=== PATIENT | female | born 1940 | race Caucasian/White ===

== ENCOUNTER → 2018-04-20 | Outpatient (CLI) | payer OTHER ==
[~2018-04-20] MED LIST: ASPI81TA40 PO; FLUO20CA30 PO; FURO20TA4 PO; LISI10TA7 PO; VIT1CAPS47 PO
== END | disposition home or self-care (01) ==
LOC: SHCH 10:17
PROVIDERS: ATTEND Internal Medicine Cardiovascular Disease
DX: I15.0 Renovascular hypertension (principal)
CPT/HCPCS: 93975

== ENCOUNTER 2018-08-14 18:01 | Inpatient (IN) | payer OTHER ==
[~2018-08-14] VITALS: Ht 160 cm; Wt 54.4 kg
[~2018-08-14 18:01] MED LIST changes: +AMOX1TAB15 PO; +ATOR20TA65 PO; +Cetirizine Hcl 5 Mg Tablet PO; -LISI10TA7 PO; +LISI2.5T2 PO; +MAGOX PO; +METO50 PO; +PRED20B PO
[2018-08-14 18:12] LABS: BASOPHILS % (AUTO) 0.9 % (0.0-5.0); EOSINOPHILS % (AUTO) 2.7 % (0.0-8.0); HEMATOCRIT 37.1 % (36-48); MEAN CORPUSCULAR HEMOGLOBIN 31.1 pg (27.0-33.0); MEAN CORPUSCULAR HGB CONC 32.9 g/dL (32.0-36.0); MEAN CORPUSCULAR VOLUME 94.6 fL (79-99); NEUTROPHILS % (AUTO) 61.4 % (40.0-77.0); NUCLEATED RED BLOOD CELLS 0.1 % (0.0-0.19); PLATELET COUNT (AUTO) 185 K/uL (130-400); RED BLOOD CELL COUNT(AUTO) 3.92 MIL/uL (4.00-5.50); RED CELL DISTRIBUTION WIDTH 16.2 % (11.0-15.5); WHITE BLOOD COUNT (AUTO) 7.7 K/uL (4.8-10.8)
[2018-08-14 18:24] LABS: CREATININE 1.8 mg/dL (0.5-1.5)
[2018-08-14 18:30] LABS: BILIRUBIN,TOTAL 0.5 mg/dL (0.2-1.0)
[2018-08-14 19:04] LABS: INR 0.95 (0.85-1.15); PARTIAL THROMBOPLASTIN TIME 27.6 SEC (26.3-35.5)
[2018-08-14] MEDS ORDERED: MORPHINE SULFATE 2 MG/ML 1ML SYG IV PRN (19:30)
[2018-08-14 20:09] LABS: HEMOGLOBIN A1C 5.8 % (4.0-6.0)
[2018-08-14 20:10] LABS: CHOLESTEROL 207 mg/dL (<200); HDL CHOLESTEROL 90 mg/dL (35-85); LDL DIRECT 109 mg/dL (0-99); TRIGLYCERIDES 65 mg/dL (30-200)
[2018-08-14 21:00] LABS: APPEARANCE,URINE Clear (CLEAR); BILIRUBIN,URINE Negative (NEGATIVE); COLOR,URINE Yellow (YELLOW); GLUCOSE, URINE (UA) Negative (NEGATIVE); KETONES,URINE Negative (NEGATIVE); LEUKOCYTE ESTERASE ,URINE Trace (NEGATIVE); NITRATE,URINE Negative (NEGATIVE); OCCULT BLOOD,URINE Negative (NEGATIVE); PROTEIN,URINE Negative (NEGATIVE); UROBILINOGEN,URINE 0.2 mg/dL (0.2-1.0)
[2018-08-14 21:39] LABS: BACTERIA,URINE None Seen /HPF (None Seen); RBC,URINE None Seen /HPF (0-1); SQUAMOUS EPITHELIAL CELL,UR 0-2 /HPF (0-2); WBC,URINE 0-1 /HPF (0-1)
[2018-08-14] MEDS ORDERED: HYDRALAZINE HCL 20 MG/ML VIAL IV PRN (21:45)
[2018-08-14] MEDS ORDERED: HYDRALAZINE HCL 20 MG/ML VIAL ONE (22:34)
[2018-08-14] MEDS ORDERED: IPRATROPIUM/ALBUTEROL SULFATE 3 ML SOLUTION IH ONE (23:07)
[2018-08-14] MEDS: IPRATROPIUM/ALBUTEROL SULFATE 3 ML SOLUTION IH SCH (23:13)
[2018-08-15] MEDS ORDERED: TEMAZEPAM 15 MG CAPSULE PO ONE (02:00)
[2018-08-15] MEDS ORDERED: TEMAZEPAM 30 MG CAP ONE (02:04)
[2018-08-15] MEDS ORDERED: HYDRALAZINE HCL 20 MG/ML VIAL ONE (02:55)
[2018-08-15] MEDS: IPRATROPIUM/ALBUTEROL SULFATE 3 ML SOLUTION IH SCH ×4 (07:14→23:12)
[2018-08-15] MEDS ORDERED: ENOXAPARIN SODIUM 30 MG/0.3 ML SQ SCH (09:00)
[2018-08-15] MEDS ORDERED: ATORVASTATIN CALCIUM 40 MG TABLET PO SCH (09:00)
[2018-08-15] MEDS ORDERED: ASPIRIN 325 MG TABLET PO SCH (09:00)
[2018-08-15] MEDS: PANTOPRAZOLE SODIUM 40 MG TABLET.DR PO SCH (09:00)
[2018-08-15] MEDS ORDERED: IPRATROPIUM/ALBUTEROL SULFATE 3 ML SOLUTION IH ONE (10:25)
--- NOTE | 2018-08-15 10:40 | NUR ---
COGNITIVE-LINGUISTIC EVAL COMPLETED. PT WITH MILD MOTOR SPEECH DEFICITS. PATIENT INFORMATION: Pt IS A 77 YEAR OLD FEMALE REFERRED FOR A COGNITIVE-LINGUISTIC EVAL SECONDARY TO POSSIBLE CVA VS. TIA. Pt COOPERATIVE DURING THE EVALUATION WITH FRIEND AT BEDSIDE. Pt HAS A PAST MEDICAL HISTORY SIGNIFICANT FOR HYPERTENSION, HYPERLIPIDEMIA, AORTIC ANEURYSM WITH STENT PLACEMENT 2016, PACEMAKER PLACEMENT 07/2018. 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 ORAL MOTOR OBSERVATIONS: PT WITH LINGUAL DEVIATION TO RIGHT WITH RIGHT SIDED FACIAL WEAKNESS, ASYMMETRICAL SMILE WITH WEAKNESS ON RIGHT SIDE. Pt IS ABLE TO PROVIDE LINGUAL LATERALIZATION. EVALUATION: Pt ABLE TO FOLLOW SIMPLE AND COMPLEX COMMANDS. Pt IS ABLE TO REQUEST WANTS AND NEEDS. Pt CAN LABEL COMMON OBJECTS AND IDENTIFY COMMON OBJECTS. PT COMMUNICATING IN SENTENCES AT THIS TIME WITH 70% INTELLIGIBILITY. Pt WITH DECREASED ORAL MOTOR MOVEMENT AND DECREASED MOTOR SPEECH. SKILLED SPEECH THERAPY IS RECOMMENDED TARGETING MOTOR SPEECH. RECOMMENDATIONS: 1. SKILLED SPEECH THERAPY 3-5XWK TARGETING SPEECH GOALS. LTG1: Pt WILL INCREASE LANGUAGE INTELLIGIBILITY TO ABLE TO REQUEST WANTS AND NEEDS DURING ADLs. *STG#1: Pt WILL COMPLETE AMRs/SMRs WITH 80% ACCURACY. *STG#2: Pt WILL USE COMPENSATORY STRATEGIES OF SLOW RATE OF SPEECH AND OVERARTICULATION AT THE PHRASE LEVEL WITH 80% ACCURACY. *STG#3: Pt WILL INCREASE INTELLIGIBILITY TO 90% ACCURACY AT CONVERSATIONAL LEVEL. *STG#4: Pt WILL COMPLETE ORAL MOTOR EXERCISES WITH 90% ACCURACY. G-CODES MOTOR SPEECH: [id number] Addendum: 08/15/18 at 1222 by ROSALVA CLINE Amended: Links added.
[2018-08-15] MEDS ORDERED: APIXABAN 2.5 MG TABLET PO ONE (11:47)
[2018-08-15] MEDS ORDERED: METOPROLOL TARTRATE 25 MG TAB ONE (11:48)
[2018-08-15] MEDS ORDERED: ENOXAPARIN SODIUM 30 MG/0.3 ML SQ ONE ×2 (11:48→12:14)
[2018-08-15] MEDS ORDERED: LISINOPRIL 5 MG TABLET ONE (11:48)
[2018-08-15] MEDS ORDERED: ASPIRIN 81MG TAB.CHEW ONE (11:49)
--- NOTE | 2018-08-15 11:56 | NUR ---
DYSPHAGIA EVAL COMPLETED. +S/S OF ASPIRATION WITH MIXED TEXTURE. RECOMMEND REGULAR, THIN LIQUIDS; PILLS WHOLE WITH LIQUIDS. NO MIXED TEXTURE AND NO STRAWS. PATIENT INFORMATION: Pt IS A 77 YEAR OLD MALE REFERRED FOR A BEDSIDE DYSPHAGIA EVAL COMPLETED SECONDARY TO ADMITTING DIAGNOSIS OF POSSIBLE CVA VS TIA. Pt COOPERATIVE DURING THE SESSION. Pt HAS A PAST MEDICAL HISTORY SIGNIFICANT FOR HYPERTENSION, HYPERLIPIDEMIA, AORTIC ANEURYSM WITH STENT PLACEMENT 2017, PACEMAKER PLACEMENT 07/2018. Pt WITH DENTURES IN PLACE AT THE TIME OF THE EVALUATION. EVALUATION: Pt PRESENTS WITH MILD OROPHARYNGEAL DYSPHAGIA CAUSED BY DECREASED LINGUAL LATERALIZATION, MILDLY DELAYED PHARYNGEAL RESPONSE TRIGGER, E/B RESIDUE IN TONGUE BODY (MILD), WITH +S/S OF ASPIRATION OF COUGH RESPONSE WITH MIXED TEXTURE. RECOMMENDATIONS: 1. REGULAR SOLIDS, THIN LIQUIDS; PILLS WHOLE WITH LIQUIDS. 2. COMPENSATORY STRATEGIES: *SEATED AT 90 DEGREES *NO STRAW *SMALL BITES AND SIPS *NO MIXED TEXTURE 3. DYSPHAGIA THERAPY 3-5X WEEK TO INCREASE ORAL MOTOR STRENGTH AND PHARYNGEAL SWALLOW: LTG#1: Pt WILL TOLERATE LEAST RESTRICTIVE DIET TO MEET NUTRITION/HYDRATION WITH NO S/S OF ASPIRATION. LTG#2: SKILLED EDUCATION Pt/FAMILY/STAFF STG#1: Pt WILL PARTICIPATE IN LARYNGEAL ELEVATION/EXCURSION EXERCISES WITH 80% ACCURACY. STG#2: Pt WILL PARTICIPATE IN TONGUE BASE RETRACTION EXERCISES WITH 80% ACCURACY. STG#3: Pt WILL PARTICIPATE IN ORAL MOTOR EXERCISES WITH 80% ACCURACY. STG#4: Pt WILL DEMONSTRATE TOLERANCE FOR REGULAR, THIN LIQUID DIET WITH NO S/S OF ASPIRATION FOR ALL MEALS AND SNACKS. STG#5: Pt WILL PARTICIPATE IN THERAPEUTIC TRIALS OF ADVANCED TEXTURES OF MIXED TEXTURE WITH NO S/S OF ASPIRATION. STG#6: SKILLED EDUCATION Pt/FAMILY/STAFF. G-CODES SWALLOWING: [id number] Addendum: 08/15/18 at 1206 by STERLING ESTEVES [facility] Amended: Links added.
[2018-08-15] MEDS ORDERED: PROP225T3 PO (12:58)
[2018-08-15] MEDS ORDERED: METO-408 PO (12:58)
[2018-08-15] MEDS ORDERED: PRAV20TA4 PO (12:58)
[2018-08-15] MEDS ORDERED: APIX2.5T PO (12:58)
[2018-08-15] MEDS ORDERED: LISI10TA7 PO (12:58)
--- NOTE | 2018-08-15 12:59 | NUR ---
ADVISED PT AND FRIEND DONOVAN TO BRING HOME MEDICAT Addendum: 08/15/18 at 1259 by CAT MCGRAW RN RN MEDICATIONS
[2018-08-15] MEDS ORDERED: PANTOPRAZOLE SODIUM 40 MG TABLET.DR PO ONE (13:48)
[2018-08-15 14:15] VITALS: BP 125/72
--- NOTE | 2018-08-15 14:30 | NUR ---
REPORT RECEIVED FROM MICHAEL RUSSELL (ED). PATIENT ADMITTED UNDER DR. FLORES FOR SLURRED SPEECH, DIFFICULTY WALKING, COUGH AND CONGESTION. DR. JAIMES CONSULTED BUT HAS NOT SEEN PATIENT. SOC DONE AT BEDSIDE. SPEECH PERFORMED BSS NO RESTRICTIONS. PATIENT RECEIVED ALL AM MEDS. PATIENT STABLE AT THIS TIME.
--- NOTE | 2018-08-15 15:54 | NUR ---
CALLED DR. JAIMES TO CLARIFY CONSULT SINCE 08/14/18. PER DR. JAIMES, WAS NOT NOTIFIED OF ER CONSULT AND PATIENT NEEDS TO BE TRANSFERRED TO ANOTHER HOSPITAL OR SOC NEEDS TO BE DONE. STATED, "I AM OUT OF TOWN UNTIL WEDNESDAY".
--- NOTE | 2018-08-15 19:48 | NUR ---
cm note met with patient and states is independent with ambulation,and adls. no dme. lives with friend jerry. pt has a driver starting gate that takes her to [facility] etc. dc plan is back to home at [place]. no dc needs. Addendum: 08/15/18 at 1950 by NISA AMATO CM Amended: Links added.
[2018-08-15 20:00] VITALS: BP 136/73
[2018-08-15] MEDS: METOPROLOL TARTRATE 25 MG TAB PO SCH (21:18)
[2018-08-15] MEDS: APIXABAN 2.5 MG TABLET PO SCH (21:18)
[2018-08-15] MEDS: ATORVASTATIN CALCIUM 20 MG TABLET PO SCH (21:18)
[2018-08-16] VITALS: BP 116/69
[2018-08-16 04:00] VITALS: BP 126/45
[2018-08-16 05:18] LABS: HEMATOCRIT 34.7 % (36-48); MEAN CORPUSCULAR HEMOGLOBIN 31.3 pg (27.0-33.0); MEAN CORPUSCULAR HGB CONC 33.1 g/dL (32.0-36.0); MEAN CORPUSCULAR VOLUME 94.5 fL (79-99); PLATELET COUNT (AUTO) 171 K/uL (130-400); RED BLOOD CELL COUNT(AUTO) 3.67 MIL/uL (4.00-5.50); RED CELL DISTRIBUTION WIDTH 16.3 % (11.0-15.5); WHITE BLOOD COUNT (AUTO) 7.5 K/uL (4.8-10.8)
[2018-08-16 05:23] LABS: CREATININE 1.7 mg/dL (0.5-1.5); POTASSIUM 4.1 mmol/L (3.5-5.1)
[2018-08-16] MEDS: IPRATROPIUM/ALBUTEROL SULFATE 3 ML SOLUTION IH SCH ×4 (06:49→23:01)
[2018-08-16 08:00] VITALS: BP 101/64
[2018-08-16] MEDS ORDERED: ASPIRIN 81MG TAB.CHEW ONE (08:51)
[2018-08-16] MEDS ORDERED: LISINOPRIL 2.5 MG TABLET PO SCH (09:00)
[2018-08-16] MEDS: ASPIRIN 325 MG TABLET PO SCH (09:00)
[2018-08-16] MEDS: PANTOPRAZOLE SODIUM 40 MG TABLET.DR PO SCH (09:11)
[2018-08-16] MEDS: LISINOPRIL 10 MG TABLET PO SCH (09:12)
[2018-08-16] MEDS: METOPROLOL TARTRATE 25 MG TAB PO SCH ×2 (09:12→20:43)
[2018-08-16] MEDS: FLUOXETINE HCL 20 MG CAPSULE PO SCH (09:12)
[2018-08-16] MEDS: APIXABAN 2.5 MG TABLET PO SCH ×2 (09:12→20:43)
--- NOTE | 2018-08-16 10:30 | NUR ---
SPEECH THERAPY COMPLETED. S: Pt SEEN IN ROOM. Pt COOPERATIVE DURING THE SESSION AND REPORTS THAT SHE HAS BEEN COMPLETING EXERCISES PROVED BY AIRCRAFT SALES REPRESENTATIVE. O: Pt CURRENTLY TARGETING THE FOLLOWING DYSPHAGIA GOALS. *STG#1: Pt WILL COMPLETE AMRs/SMRs WITH 80% ACCURACY: 70% ACCURACY GIVEN MAX CUES *STG#2: Pt WILL USE COMPENSATORY STRATEGIES OF SLOW RATE OF SPEECH AND OVERARTICULATION AT THE PHRASE LEVEL WITH 80% ACCURACY: 60% ACCURACY GIVEN MODERATE CUES *STG#3: Pt WILL INCREASE INTELLIGIBILITY TO 90% ACCURACY AT CONVERSATIONAL LEVEL: INTELLIGIBLE AT 80% ACCURACY *STG#4: Pt WILL COMPLETE ORAL MOTOR EXERCISES WITH 90% ACCURACY: 80% ACCURACY A: Pt PARTICIPATED IN ALL EXERCISES. Pt WITH RIGHT SIDED FACIAL WEAKNESS. Pt HIGHLY MOTIVATED TO IMPROVE FACIAL WEAKNESS AND INTELLIGIBILITY. P: RECOMMEND CONTINUED SKILLED SPEECH THERAPY TARGETING PREVIOUSLY DISCUSSED GOALS. AIRCRAFT SALES REPRESENTATIVE PROVIDED Pt WITH HOMEWORK TO BE COMPLETED DAILY BY Pt. SHE VERBALIZED AGREEMENT AND COMPLIANCE WITH RECOMMENDATIONS. Addendum: 08/16/18 at 1226 by STERLING ESTEVES [facility] Amended: Links added.
[2018-08-16 12:00] VITALS: BP 116/39
--- NOTE | 2018-08-16 12:00 | NUR ---
DISCHARGE PLANS MET WITH PATIENT AT BEDSIDE. RIGHT SIDE OF FACE SLIGHTLY DROOPY, SPEECH A LITTLE DIFFICULT TO UNDERSTAND, WORKING REVIEWED FACE SHEET. NO NEXT OF KIN. PT STATES LIVES ALONE, FRIEND/NEIGHBOR IS 'AT HER HOUSE ALL THE TIME' STATES LEGALLY BLIND,HAS A FRIEND WHO DRIVES HER. ASKED ABOUT NEXT OF KIN, ADDING TO FACESHEET, PT VISIBLY UPSET, STATES WHY DO YOU WANT TO KNOW ABOUT MY MONEY? TRIED TO EXPLAIN THE VALUE OF AN MPOA. DECLINED TO HAVE SISTER BIANCA CONNELLY (LIVES [place]CROSS [address]) ,DAUGHTER VONDA ARANDA ([place]) OR SON CHASITY GIORDANO ([facility]) PHONE NUMBERS PUT ON THE FACE SHEET. HAS NO DME AT HOME, INCLUDING NO SHOWER CHAIR; USES O2 AT NIGHT. PT CURRENTLY ON O2 2 LITRES. ADVISED PT I HAD A ORDER TO TALK ABOUT PLACEMENT. PT DECLINED FIRMLY . DISCUSSED SETTING UP HOME HEALTH-STATED SHE GOES TO CLINIC IN [place]/DR. MCCURDY IS ON FACE SHEET,GOT APPT FOR Wednesday, SHE WILL FOLLOW UP THERE WHEN DISCHARGED FOR THERAPY. CASE MANAGEMENT WILL ENSURE PTS INFO GETS TO [facility] IN A TIMELY MANNER FOR POSS HH SET UP.
--- NOTE | 2018-08-16 15:00 | NUR ---
PT WANTS TO LEAVE TODAY CALLED BY PRIMARY RN, PT WANTS TO LEAVE TODAY . 2D ECHO STILL PENDING, PRELIM READING ABNORMAL. TWO GENTREFUGIOEN AT BEDSIDE, ONE JENNIFER, ON A FIREND WHO WILL DRIVE BOTH OF THEM HOME. PT VISIBLY UPSET TO SEE THIS CM. STATES I WANT TO TALK TO MY DOCTOR, I WANT TO LEAVE TODAY; EXPLAINED THAT THE 2D ECHO IS NOT READ. THAT THE ECHO SOMETIMES CHANGES THE AMPIUT OR TYUP OF ANTICOPAGULAITON A PERSON IS ONE. SMALL POSSIBILITY BUT TRUE. PT STILL STATEED WANTED TO LEAVE. TALKED TO PRIMARY NURSE JENNIFER, WHO CALLED [facility]. PT WOULD HAVE TO LEAVE AMA. PT STATED WOULD WAIT AT THIS TIME. APPOINT FOR TOMORROW 08/[address] SANCHEZ PATIENT MADE. WILL FAX ALL PERTINENT INFO FOR TIMELY FOLLOW UP
[2018-08-16] MEDS: ACETAMINOPHEN 325 MG TAB PO PRN ×2 (15:08→20:48)
[2018-08-16 16:00] VITALS: BP 130/73
--- NOTE | 2018-08-16 19:25 | NUR ---
Received bedside report ,pt. decided to stay ,pt. is awake and oriented,moving all extremeties.Echo pending result at this time.As per report pt. refused SNF placement ,she decided to go home with home health.
[2018-08-16 20:00] VITALS: BP 135/76
[2018-08-16] MEDS: ATORVASTATIN CALCIUM 20 MG TABLET PO SCH (20:43)
[2018-08-17] VITALS: BP 140/74
[2018-08-17 04:00] VITALS: BP 120/70
[2018-08-17 05:22] LABS: BASOPHILS % (AUTO) 0.8 % (0.0-5.0); HEMATOCRIT 32.8 % (36-48); MEAN CORPUSCULAR HEMOGLOBIN 31.6 pg (27.0-33.0); MEAN CORPUSCULAR HGB CONC 33.2 g/dL (32.0-36.0); MEAN CORPUSCULAR VOLUME 95.2 fL (79-99); MONOCYTES % (AUTO) 14.9 % (3.0-13.0); NEUTROPHILS % (AUTO) 62.3 % (40.0-77.0); PLATELET COUNT (AUTO) 192 K/uL (130-400); RED BLOOD CELL COUNT(AUTO) 3.45 MIL/uL (4.00-5.50); RED CELL DISTRIBUTION WIDTH 16.3 % (11.0-15.5)
[2018-08-17 05:31] LABS: CREATININE 1.8 mg/dL (0.5-1.5); POTASSIUM 4.4 mmol/L (3.5-5.1)
[2018-08-17] MEDS: IPRATROPIUM/ALBUTEROL SULFATE 3 ML SOLUTION IH SCH (05:53)
[2018-08-17 07:00] VITALS: BP 128/70
[2018-08-17] MEDS: METOPROLOL TARTRATE 25 MG TAB PO SCH (10:10)
[2018-08-17] MEDS: LISINOPRIL 10 MG TABLET PO SCH (10:10)
[2018-08-17] MEDS: FLUOXETINE HCL 20 MG CAPSULE PO SCH (10:10)
[2018-08-17] MEDS: APIXABAN 2.5 MG TABLET PO SCH (10:10)
[2018-08-17] MEDS: PANTOPRAZOLE SODIUM 40 MG TABLET.DR PO SCH (10:10)
[2018-08-17] MEDS: ASPIRIN 325 MG TABLET PO SCH (10:11)
[2018-08-17] MEDS ORDERED: METO25 PO (12:12)
--- NOTE | 2018-08-17 12:18 | NUR ---
SPEECH THERAPY COMPLETED. S: Pt SEEN IN ROOM. Pt COOPERATIVE DURING THE SESSION AND REPORTS THAT SHE HAS BEEN COMPLETING EXERCISES PROVIDED BY GEROPSYCHOLOGIST. O: Pt CURRENTLY TARGETING THE FOLLOWING DYSPHAGIA GOALS. *STG#1: Pt WILL COMPLETE AMRs/SMRs WITH 80% ACCURACY: 70% ACCURACY GIVEN MAX CUES *STG#2: Pt WILL USE COMPENSATORY STRATEGIES OF SLOW RATE OF SPEECH AND OVERARTICULATION AT THE PHRASE LEVEL WITH 80% ACCURACY: 60% ACCURACY GIVEN MODERATE CUES *STG#3: Pt WILL INCREASE INTELLIGIBILITY TO 90% ACCURACY AT CONVERSATIONAL LEVEL: INTELLIGIBLE AT 80% ACCURACY *STG#4: Pt WILL COMPLETE ORAL MOTOR EXERCISES WITH 90% ACCURACY: 80% ACCURACY A: Pt PARTICIPATED IN ALL EXERCISES. Pt WITH RIGHT SIDED FACIAL WEAKNESS. Pt HIGHLY MOTIVATED TO IMPROVE FACIAL WEAKNESS AND INTELLIGIBILITY. P: RECOMMEND CONTINUED SKILLED SPEECH THERAPY TARGETING PREVIOUSLY DISCUSSED GOALS. GEROPSYCHOLOGIST PROVIDED Pt WITH HOMEWORK TO BE COMPLETED DAILY BY Pt. SHE VERBALIZED AGREEMENT AND COMPLIANCE WITH RECOMMENDATIONS. Addendum: 08/17/18 at [address] [facility] Amended: Links added.
== END 2018-08-17 15:10 | disposition home or self-care (01) | DRG 69 ==
LOC: EDH 18:01 → EDHIP 19:30 → 3DH 08-15 14:50
PROVIDERS: ADMIT Hospitalist; ATTEND Hospitalist
DX: G45.9 Transient cerebral ischemic attack, unspecified (principal); E78.5 Hyperlipidemia, unspecified; I10 Essential (primary) hypertension; Z82.49 Family history of ischemic heart disease and other diseases of the circulatory system; Z86.79 Personal history of other diseases of the circulatory system; Z95.0 Presence of cardiac pacemaker; Z80.1 Family history of malignant neoplasm of trachea, bronchus and lung; Z87.891 Personal history of nicotine dependence
CPT/HCPCS: 36415; 70450; 71045; 80048; 80053; 80061; 81001; 82948; 83036; 84484; 85025; 85027; 85610; 85730; 92507; 92522; 92610; 93005; 93306; 93880; 94640; 94664; 97039; G0378; J0360; J1650

== ENCOUNTER → 2019-09-13 | Outpatient (CLI) | payer OTHER ==
[~2019-09-13] MED LIST changes: -AMOX1TAB15 PO; +APIX2.5T PO; -ASPI81TA40 PO; -ATOR20TA65 PO; -Cetirizine Hcl 5 Mg Tablet PO; -FLUO20CA30 PO; -FURO20TA4 PO; +LISI10TA7 PO; -LISI2.5T2 PO; -MAGOX PO; +METO25 PO; -METO50 PO; +PRAV20TA4 PO; -PRED20B PO; +PROP225T3 PO; -VIT1CAPS47 PO
== END | disposition home or self-care (01) ==
LOC: RAH 08:12
PROVIDERS: ATTEND Internal Medicine Critical Care Medicine
DX: N26.1 Atrophy of kidney (terminal) (principal)
CPT/HCPCS: 74176

== ENCOUNTER → 2019-11-13 | Outpatient (CLI) | payer OTHER | END | disposition home or self-care (01) | LOC: SHCH 10:44 | PROVIDERS: ATTEND Internal Medicine Cardiovascular Disease | DX: I71.4 Abdominal aortic aneurysm, without rupture (principal); I73.9 Peripheral vascular disease, unspecified | CPT/HCPCS: 93925; 93978 ==

== ENCOUNTER → 2022-09-01 | Outpatient (CLI) | payer OTHER ==
[~2022-09-01] MED LIST changes: +ACYC200C24 PO; +AMOX1TAB16 PO; +DILT180C63 PO; +FERR159T2 PO; +FLUO20CA36 PO; +FOLI0.8T22 PO; +LISI10TA24 PO; -LISI10TA7 PO; +MEMA10TA55 PO; -METO25 PO; +OMEG-148 PO; -PRAV20TA4 PO; +PRED20TA3 PO; -PROP225T3 PO; +ROSU10TA22 PO; +SODI650T PO
== END | disposition home or self-care (01) ==
LOC: SHCH 07:49
PROVIDERS: ATTEND Internal Medicine Cardiovascular Disease
DX: I70.1 Atherosclerosis of renal artery (principal); I71.40 Abdominal aortic aneurysm, without rupture, unspecified; I48.21 Permanent atrial fibrillation
CPT/HCPCS: 93975; 93978

== ENCOUNTER 2023-09-05 11:18 | Inpatient (IN) | payer OTHER ==
[~2023-09-05] VITALS: Ht 157.5 cm; Wt 73.4 kg
[2023-09-05 11:48] LABS: BASOPHILS # (AUTO) 0.05 K/uL (0.00-0.20); BASOPHILS % (AUTO) 0.5 % (0.0-5.0); EOSINOPHILS # (AUTO) 0.27 K/uL (0.00-0.70); EOSINOPHILS % (AUTO) 2.9 % (0.0-8.0); HEMATOCRIT 36.7 % (36-48); IMMATURE GRANULOCYTE ABSOLUTE 0.02 K/uL (0-1); LYMPHOCYTES # (AUTO) 1.4 K/uL (1.0-4.8); LYMPHOCYTES % (AUTO) 15.2 % (21.0-51.0); MEAN CORPUSCULAR HEMOGLOBIN 29.8 pg (27.0-33.0); MEAN CORPUSCULAR HGB CONC 30.5 g/dL (32.0-36.0); MEAN CORPUSCULAR VOLUME 97.6 fL (79-99); MONOCYTES # (AUTO) 1.3 K/uL (0.1-1.0); MONOCYTES % (AUTO) 13.9 % (3.0-13.0); NEUTROPHILS # (AUTO) 6.2 K/uL (1.8-7.7); NEUTROPHILS % (AUTO) 67.3 % (40.0-77.0); PLATELET COUNT (AUTO) 213 K/uL (130-400); RED BLOOD CELL COUNT(AUTO) 3.76 MIL/uL (4.00-5.50); RED CELL DISTRIBUTION WIDTH 14.3 % (11.0-15.5); WHITE BLOOD COUNT (AUTO) 9.2 K/uL (4.8-10.8)
[2023-09-05] MEDS: SOLU-MEDROL 125MG VIAL IVP ONE (11:50)
[2023-09-05 11:55] LABS: CREATININE 1.2 mg/dL (0.5-1.0); POTASSIUM 3.9 mmol/L (3.5-5.1)
[2023-09-05 11:57] LABS: SARS-CoV-2, RNA, NAAT NEGATIVE SARS CoV-2 (NEGATIVE)
[2023-09-05 12:00] LABS: INFLUENZA TYPE A Negative For Type A (NEGATIVE); INFLUENZA TYPE B Negative For Type B (NEGATIVE)
[2023-09-05 12:00] LABS: ALBUMIN 2.8 g/dL (3.5-5.0); BILIRUBIN,TOTAL 0.3 mg/dL (0.2-1.0); TOTAL PROTEIN, SERUM 6.8 g/dL (6.0-8.3)
[2023-09-05 12:01] VITALS: PULSE 113; RESP 24
[2023-09-05 12:02] LABS: ABG BASE EXCESS 2.6 mmol/L (-2.0-3.0); ABG HCO3 29.6 mmol/L (21.0-28.0); ABG OXYGEN SATURATION 80.3 % (95.0-99.0); ABG PCO2 55 mmHg (32-45); ABG PH 7.347 (7.35-7.450); PO2, ARTERIAL BG 47.3 mmHg (83.0-108.0); VENT MODE, BG NC (ROOM AIR)
[2023-09-05 12:09] VITALS: PULSE 116; RESP 24; O2SAT 98
[2023-09-05 12:11] LABS: B-TYPE NATRIURETIC PEPTIDE 924 pg/mL (0-100)
[2023-09-05 13:00] VITALS: PULSE 110; RESP 24; O2SAT 99
[2023-09-05] MEDS: IPRATROPIUM/ALBUTEROL SULFATE 3 ML SOLUTION IH ONE (13:10)
[2023-09-05] MEDS: FUROSEMIDE 40MG VIAL IV ONE (13:15)
[2023-09-05] MEDS: CEFTRIAXONE 2GM VIAL IVPB SCH (14:26)
[2023-09-05] MEDS: METOPROLOL TARTRATE 25 MG TAB PO SCH ×2 (14:26→20:50)
[2023-09-05 14:49] LABS: THYROID STIMULATING HORMONE 1.23 uIU/mL (0.36-3.74)
[2023-09-05] MEDS ORDERED: ACETAMINOPHEN 500 MG TABLET PO PRN (15:00)
[2023-09-05] MEDS ORDERED: POTASSIUM CHLORIDE 10% ELIXIR 20 MEQ/15 ML UDCUP PO PRN (15:00)
[2023-09-05] MEDS ORDERED: POTASSIUM CHLORIDE 20MEQ/100ML 100 ML IV PRN (15:00)
[2023-09-05] MEDS ORDERED: MAGNESIUM 2GM PREMIX 50ML 50 ML IV PRN (15:00)
[2023-09-05 15:12] LABS: INR 0.96 (0.85-1.15); PROTHROMBIN TIME 11.4 SEC (9.6-11.6)
[2023-09-05 15:14] LABS: PARTIAL THROMBOPLASTIN TIME 34.9 SEC (26.3-35.5)
[2023-09-05 16:13] LABS: CREATININE 1.3 mg/dL (0.5-1.0); MAGNESIUM 1.9 mg/dL (1.80-2.40); POTASSIUM 3.9 mmol/L (3.5-5.1)
[2023-09-05] MEDS: ZOSYN 3.375GM +NS 50ML IV SCH (16:43)
[2023-09-05] MEDS: ENOXAPARIN SODIUM 80 MG/0.8 ML SQ SCH (16:43)
[2023-09-05] MEDS: INSULIN HUMULIN R 100 UNIT/ML 3ML SQ SCH (17:18)
[2023-09-05] MEDS: FUROSEMIDE 40MG VIAL IV SCH (18:17)
[2023-09-05 18:55] VITALS: PULSE 109; RESP 23
[2023-09-05] MEDS: IPRATROPIUM 0.5 MG/2.5 ML INH IH SCH (18:58)
[2023-09-05] MEDS: BUDESONIDE 0.5 MG/2 ML INH IH SCH (18:58)
[2023-09-05 19:01] VITALS: PULSE 105; PULSE 108; RESP 22; RESP 23; O2SAT 95
[2023-09-05] MEDS ORDERED: SOLU-MEDROL 40MG VIAL IVP SCH (20:00)
[2023-09-05] MEDS: SOLU-MEDROL 40MG VIAL IVP SCH (20:49)
[2023-09-05] MEDS: DOXYCYCLINE HYCLATE 100 MG TABLET PO SCH (20:50)
[2023-09-05] MEDS: FAMOTIDINE 20MG VIAL IV SCH (20:50)
[2023-09-06] VITALS (12 sets, daily range): BP systolic 117–160; BP diastolic 74–93; PULSE 79–103; RESP 18–26; O2SAT 92–95
[2023-09-06] MEDS ORDERED: METO-408 PO (00:45)
[2023-09-06] MEDS ORDERED: ALPR0.255 PO (00:45)
[2023-09-06] MEDS ORDERED: MONT-39 PO (00:45)
[2023-09-06] MEDS ORDERED: DILT180C89 PO (00:45)
[2023-09-06] MEDS ORDERED: FERR325T29 PO (00:45)
[2023-09-06 01:51] LABS: APPEARANCE,URINE CLEAR (CLEAR); BILIRUBIN,URINE NEGATIVE (NEGATIVE); COLOR,URINE COLORLESS (YELLOW); GLUCOSE, URINE (UA) NEGATIVE (NEGATIVE); KETONES,URINE NEGATIVE (NEGATIVE); LEUKOCYTE ESTERASE ,URINE NEGATIVE Leu/uL (NEGATIVE); NITRATE,URINE NEGATIVE (NEGATIVE); OCCULT BLOOD,URINE NEGATIVE (NEGATIVE); PROTEIN,URINE NEGATIVE (NEGATIVE); UROBILINOGEN,URINE 0.2 mg/dL (0.2-1.0)
[2023-09-06 01:52] LABS: ADD UA MICROSCOPIC NO
[2023-09-06 07:14] LABS: BASOPHILS # (AUTO) 0.01 K/uL (0.00-0.20); BASOPHILS % (AUTO) 0.1 % (0.0-5.0); HEMATOCRIT 37.8 % (36-48); IMMATURE GRANULOCYTE ABSOLUTE 0.02 K/uL (0-1); LYMPHOCYTES # (AUTO) 0.8 K/uL (1.0-4.8); LYMPHOCYTES % (AUTO) 10.5 % (21.0-51.0); MEAN CORPUSCULAR HEMOGLOBIN 29.7 pg (27.0-33.0); MEAN CORPUSCULAR VOLUME 92.9 fL (79-99); MONOCYTES # (AUTO) 0.4 K/uL (0.1-1.0); MONOCYTES % (AUTO) 5.5 % (3.0-13.0); NEUTROPHILS # (AUTO) 6.7 K/uL (1.8-7.7); NEUTROPHILS % (AUTO) 83.7 % (40.0-77.0); PLATELET COUNT (AUTO) 259 K/uL (130-400); RED BLOOD CELL COUNT(AUTO) 4.07 MIL/uL (4.00-5.50)
[2023-09-06 07:29] LABS: ALBUMIN 3.1 g/dL (3.5-5.0); BILIRUBIN,TOTAL 0.2 mg/dL (0.2-1.0); CREATININE 1.5 mg/dL (0.5-1.0); MAGNESIUM 1.9 mg/dL (1.80-2.40); POTASSIUM 3.9 mmol/L (3.5-5.1); TOTAL PROTEIN, SERUM 7.6 g/dL (6.0-8.3)
[2023-09-06 07:30] LABS: ABG BASE EXCESS 4.3 mmol/L (-2.0-3.0); ABG HCO3 30.1 mmol/L (21.0-28.0); ABG OXYGEN SATURATION 88.3 % (95.0-99.0); ABG PCO2 49 mmHg (32-45); ABG PH 7.405 (7.35-7.450); PO2, ARTERIAL BG 54.8 mmHg (83.0-108.0); VENT MODE, BG VENTI (ROOM AIR)
[2023-09-06 08:21] LABS: B-TYPE NATRIURETIC PEPTIDE 1060 pg/mL (0-100)
[2023-09-06] MEDS: ENOXAPARIN SODIUM 80 MG/0.8 ML SQ SCH (09:18)
[2023-09-06] MEDS ORDERED: IBUP-2070 PO (11:16)
[2023-09-06] MEDS ORDERED: CHOL500045 PO (11:16)
[2023-09-06] MEDS ORDERED: CYAN10007 IJ (11:16)
[2023-09-06] MEDS ORDERED: ROSU5TAB12 PO (11:16)
[2023-09-06] MEDS ORDERED: FOLI1TAB85 PO (11:16)
[2023-09-06] MEDS ORDERED: MEMA10TA55 PO (11:16)
[2023-09-06] MEDS ORDERED: VIT1CAPS47 PO (11:16)
[2023-09-06] MEDS ORDERED: ACET325T51 PO (11:16)
[2023-09-06] MEDS ORDERED: APIX2.5T PO (11:16)
[2023-09-06] MEDS ORDERED: FLUO20CA36 PO (11:16)
[2023-09-06] MEDS: METOPROLOL TARTRATE 50 MG TAB PO SCH (20:37)
[2023-09-06 23:51] LABS: MAGNESIUM 1.8 mg/dL (1.80-2.40); PHOSPHORUS 4.3 mg/dL (2.5-4.9)
[2023-09-07] VITALS (15 sets, daily range): BP systolic 96–159; BP diastolic 51–99; PULSE 61–98; RESP 18–24; O2SAT 90–98
[2023-09-07 02:59] LABS: APPEARANCE,URINE CLEAR (CLEAR); BILIRUBIN,URINE NEGATIVE (NEGATIVE); COLOR,URINE COLORLESS (YELLOW); GLUCOSE, URINE (UA) NEGATIVE (NEGATIVE); KETONES,URINE NEGATIVE (NEGATIVE); LEUKOCYTE ESTERASE ,URINE 25 Leu/uL (NEGATIVE); NITRATE,URINE NEGATIVE (NEGATIVE); OCCULT BLOOD,URINE SMALL (NEGATIVE); PH,URINE 5.5 (5.0-8.0); PROTEIN,URINE 10 mg/dL (NEGATIVE); UROBILINOGEN,URINE 0.2 mg/dL (0.2-1.0)
[2023-09-07 03:02] LABS: ADD UA MICROSCOPIC YES; CHLORIDE,URINE RANDOM 132 mmol/L (110-250); CREATININE,URINE RANDOM 17.67 mg/dL (30-135); POTASSIUM,URINE RANDOM 19 mmol/L (25-125); PROTEIN,URINE RANDOM 33.3 mg/dL (0-11.9); SODIUM,URINE RANDOM 120 mmol/l (40-220)
[2023-09-07 03:03] LABS: BACTERIA,URINE FEW /HPF (None Seen); MUCUS,URINE RARE LPF (None Seen); SQUAMOUS EPITHELIAL CELL,UR RARE /HPF (0-2)
[2023-09-07 05:36] LABS: BASOPHILS # (AUTO) 0.02 K/uL (0.00-0.20); BASOPHILS % (AUTO) 0.1 % (0.0-5.0); HEMATOCRIT 40.8 % (36-48); IMMATURE GRANULOCYTE ABSOLUTE 0.09 K/uL (0-1); LYMPHOCYTES # (AUTO) 1.1 K/uL (1.0-4.8); LYMPHOCYTES % (AUTO) 6.9 % (21.0-51.0); MEAN CORPUSCULAR HEMOGLOBIN 29.8 pg (27.0-33.0); MEAN CORPUSCULAR HGB CONC 31.6 g/dL (32.0-36.0); MEAN CORPUSCULAR VOLUME 94.2 fL (79-99); MONOCYTES # (AUTO) 1.2 K/uL (0.1-1.0); MONOCYTES % (AUTO) 7.5 % (3.0-13.0); NEUTROPHILS # (AUTO) 13.6 K/uL (1.8-7.7); NEUTROPHILS % (AUTO) 84.9 % (40.0-77.0); PLATELET COUNT (AUTO) 302 K/uL (130-400); RED BLOOD CELL COUNT(AUTO) 4.33 MIL/uL (4.00-5.50); RED CELL DISTRIBUTION WIDTH 13.9 % (11.0-15.5)
[2023-09-07 05:57] LABS: ALBUMIN 3.3 g/dL (3.5-5.0); BILIRUBIN,TOTAL 0.4 mg/dL (0.2-1.0); CREATININE 1.7 mg/dL (0.5-1.0); POTASSIUM 3.5 mmol/L (3.5-5.1); TOTAL PROTEIN, SERUM 7.9 g/dL (6.0-8.3)
[2023-09-07 06:01] LABS: B-TYPE NATRIURETIC PEPTIDE 1210 pg/mL (0-100)
[2023-09-07] MEDS: KCL 20 MEQ ERTAB PO PRN (06:38)
[2023-09-07] MEDS: INSULIN HUMULIN R 100 UNIT/ML 3ML SQ SCH (08:05)
[2023-09-07] MEDS: FUROSEMIDE 40 MG TABLET PO SCH (09:22)
[2023-09-07] MEDS: ONDANSETRON 4MG INJ IVP PRN (15:34)
[2023-09-08 03:33] VITALS: BP 147/86; PULSE 80; RESP 18
[2023-09-08 04:00] LABS: BASOPHILS # (AUTO) 0.01 K/uL (0.00-0.20); BASOPHILS % (AUTO) 0.1 % (0.0-5.0); EOSINOPHILS # (AUTO) 0.11 K/uL (0.00-0.70); HEMATOCRIT 40.2 % (36-48); IMMATURE GRANULOCYTE ABSOLUTE 0.04 K/uL (0-1); LYMPHOCYTES # (AUTO) 1.6 K/uL (1.0-4.8); LYMPHOCYTES % (AUTO) 14.1 % (21.0-51.0); MEAN CORPUSCULAR HEMOGLOBIN 29.9 pg (27.0-33.0); MEAN CORPUSCULAR HGB CONC 31.6 g/dL (32.0-36.0); MEAN CORPUSCULAR VOLUME 94.6 fL (79-99); MONOCYTES # (AUTO) 1.6 K/uL (0.1-1.0); MONOCYTES % (AUTO) 14.2 % (3.0-13.0); NEUTROPHILS # (AUTO) 7.8 K/uL (1.8-7.7); NEUTROPHILS % (AUTO) 70.2 % (40.0-77.0); PLATELET COUNT (AUTO) 283 K/uL (130-400); RED BLOOD CELL COUNT(AUTO) 4.25 MIL/uL (4.00-5.50); RED CELL DISTRIBUTION WIDTH 14.3 % (11.0-15.5); WHITE BLOOD COUNT (AUTO) 11.1 K/uL (4.8-10.8)
[2023-09-08 04:21] LABS: ALBUMIN 2.9 g/dL (3.5-5.0); BILIRUBIN,TOTAL 0.5 mg/dL (0.2-1.0); PHOSPHORUS 6.1 mg/dL (2.5-4.9); POTASSIUM 3.7 mmol/L (3.5-5.1); TOTAL PROTEIN, SERUM 7.2 g/dL (6.0-8.3); URIC ACID 6.3 mg/dL (2.6-7.2)
[2023-09-08 06:16] VITALS: PULSE 88; RESP 20; O2SAT 93
[2023-09-08 06:17] VITALS: PULSE 88; RESP 20
[2023-09-08 08:08] VITALS: BP 130/91; PULSE 85; RESP 18
[2023-09-08] MEDS: SOLU-MEDROL 40MG VIAL IVP SCH (09:15)
[2023-09-08 09:20] VITALS: O2SAT 93
[2023-09-08] MEDS ORDERED: PRED20TA3 PO (10:14)
[2023-09-08] MEDS ORDERED: AMOX1TAB15 PO (10:14)
[2023-09-08] MEDS ORDERED: DOXY100T2 PO (10:14)
[2023-09-08 11:15] VITALS: BP 157/74; PULSE 94; RESP 18
== END 2023-09-08 11:59 | disposition home or self-care (01) | DRG 177 ==
LOC: EDH 11:18 → EDHIP 14:09 → 2DH 09-06 13:44
PROVIDERS: ADMIT Hospitalist; ATTEND Hospitalist
DX: J15.69 Pneumonia due to other Gram-negative bacteria (principal); E43 Unspecified severe protein-calorie malnutrition; I50.43 Acute on chronic combined systolic (congestive) and diastolic (congestive) heart failure; J96.21 Acute and chronic respiratory failure with hypoxia; J96.22 Acute and chronic respiratory failure with hypercapnia; J44.1 Chronic obstructive pulmonary disease with (acute) exacerbation; E87.29 Other acidosis; J44.0 Chronic obstructive pulmonary disease with (acute) lower respiratory infection; D68.69 Other thrombophilia; I13.0 Hypertensive heart and chronic kidney disease with heart failure and stage 1 through stage 4 chronic kidney disease, or unspecified chronic kidney disease; I48.19 Other persistent atrial fibrillation; N17.9 Acute kidney failure, unspecified; N28.0 Ischemia and infarction of kidney; Z20.822 Contact with and (suspected) exposure to COVID-19; N18.30 Chronic kidney disease, stage 3 unspecified; J84.10 Pulmonary fibrosis, unspecified; E66.3 Overweight; E78.5 Hyperlipidemia, unspecified; F03.90 Unspecified dementia, unspecified severity, without behavioral disturbance, psychotic disturbance, mood disturbance, and anxiety; F17.210 Nicotine dependence, cigarettes, uncomplicated; I16.0 Hypertensive urgency; I27.20 Pulmonary hypertension, unspecified; I45.9 Conduction disorder, unspecified; I71.43 Infrarenal abdominal aortic aneurysm, without rupture; I73.9 Peripheral vascular disease, unspecified; J43.9 Emphysema, unspecified; N28.1 Cyst of kidney, acquired; T38.0X5A Adverse effect of glucocorticoids and synthetic analogues, initial encounter; Y92.89 Other specified places as the place of occurrence of the external cause; Z79.01 Long term (current) use of anticoagulants; Z79.899 Other long term (current) drug therapy; Z86.73 Personal history of transient ischemic attack (TIA), and cerebral infarction without residual deficits; Z86.79 Personal history of other diseases of the circulatory system; Z95.0 Presence of cardiac pacemaker; Z99.81 Dependence on supplemental oxygen; Z68.29 Body mass index [BMI] 29.0-29.9, adult
CPT/HCPCS: 36415; 36600; 71045; 71250; 76770; 78582; 80048; 80053; 81001; 81003; 82436; 82570; 82803; 82948; 83036; 83735; 83880; 84100; 84133; 84145; 84156; 84300; 84443; 84484; 84550; 85025; 85378; 85610; 85730; 86140; 87071; 87205; 87635; 87804; 93005; 93306; 94640; 94664; 96365; 96375; A9540; A9558; G0378; J0696; J1650; J1815; J1940; J2405; J2543; J2920; J2930; J3490

== ENCOUNTER → 2023-10-05 | Outpatient (CLI) | payer OTHER ==
[~2023-10-05] MED LIST changes: +ACET325T51 PO; -ACYC200C24 PO; +ALPR0.255 PO; +AMOX1TAB15 PO; -AMOX1TAB16 PO; +CHOL500045 PO; +CYAN10007 IJ; -DILT180C63 PO; +DILT180C89 PO; +DOXY100T2 PO; -FERR159T2 PO; +FERR325T29 PO; -FOLI0.8T22 PO; +FOLI1TAB85 PO; +IBUP-2070 PO; -LISI10TA24 PO; +MEMA10TA21 PO; -MEMA10TA55 PO; +METO-408 PO; +MONT-39 PO; -OMEG-148 PO; -ROSU10TA22 PO; +ROSU5TAB12 PO; -SODI650T PO; +VIT1CAPS47 PO
[2023-10-05] MEDS: REGADENOSON 0.4 MG/5 ML PF SYG IVP ONE (13:18)
== END | disposition home or self-care (01) ==
LOC: SHCH 08:39
PROVIDERS: ATTEND Internal Medicine Cardiovascular Disease
DX: I48.91 Unspecified atrial fibrillation (principal); I25.10 Atherosclerotic heart disease of native coronary artery without angina pectoris
CPT/HCPCS: 78452; 96374; 93017; J2785; A9500 ×2

== ENCOUNTER 2023-11-26 10:08 | Inpatient (IN) | payer OTHER ==
[~2023-11-26] VITALS: Ht 160 cm; Wt 68.9 kg
[2023-11-26] VITALS (7 sets, daily range): BP systolic 100–120; BP diastolic 63–83; PULSE 70–93; RESP 16–20; O2SAT 93–99
[~2023-11-26 10:08] MED LIST changes: +FLUO-418 PO; -FLUO20CA36 PO; -ROSU5TAB12 PO; +ROSU5TAB43 PO
[2023-11-26 10:38] LABS: BASOPHILS # (AUTO) 0.04 K/uL (0.00-0.20); BASOPHILS % (AUTO) 0.4 % (0.0-5.0); EOSINOPHILS # (AUTO) 0.07 K/uL (0.00-0.70); EOSINOPHILS % (AUTO) 0.6 % (0.0-8.0); HEMATOCRIT 40.9 % (36-48); IMMATURE GRANULOCYTE ABSOLUTE 0.05 K/uL (0-1); LYMPHOCYTES # (AUTO) 0.9 K/uL (1.0-4.8); LYMPHOCYTES % (AUTO) 8.2 % (21.0-51.0); MEAN CORPUSCULAR HEMOGLOBIN 28.7 pg (27.0-33.0); MEAN CORPUSCULAR HGB CONC 31.8 g/dL (32.0-36.0); MEAN CORPUSCULAR VOLUME 90.3 fL (79-99); MONOCYTES # (AUTO) 1.8 K/uL (0.1-1.0); MONOCYTES % (AUTO) 16.4 % (3.0-13.0); NEUTROPHILS # (AUTO) 8.2 K/uL (1.8-7.7); NEUTROPHILS % (AUTO) 73.9 % (40.0-77.0); PLATELET COUNT (AUTO) 239 K/uL (130-400); RED BLOOD CELL COUNT(AUTO) 4.53 MIL/uL (4.00-5.50); RED CELL DISTRIBUTION WIDTH 14.4 % (11.0-15.5); WHITE BLOOD COUNT (AUTO) 11.1 K/uL (4.8-10.8)
[2023-11-26 10:54] LABS: ALBUMIN 2.9 g/dL (3.5-5.0); BILIRUBIN,TOTAL 0.5 mg/dL (0.2-1.0); CREATININE 2.4 mg/dL (0.5-1.0); POTASSIUM 4.9 mmol/L (3.5-5.1); TOTAL PROTEIN, SERUM 7.5 g/dL (6.0-8.3)
[2023-11-26 11:14] LABS: INR 1.16 (0.85-1.15); PARTIAL THROMBOPLASTIN TIME 31.9 SEC (26.3-35.5); PROTHROMBIN TIME 12.2 SEC (9.6-11.6)
[2023-11-26] MEDS ORDERED: ACETAMINOPHEN 325 MG TAB PO PRN (13:00)
[2023-11-26] MEDS ORDERED: ONDANSETRON 4MG INJ IVP PRN (13:00)
[2023-11-26] MEDS: HEPARIN 5,000 UNIT VIAL SQ SCH (13:04)
[2023-11-26] MEDS: FUROSEMIDE 20MG VIAL IVP ONE (13:06)
[2023-11-26] MEDS: ZOSYN 3.375GM +NS 50ML IV ONE (13:23)
[2023-11-26] MEDS: DILTIAZEM 25MG INJ IVP ONE (13:24)
[2023-11-26] MEDS ORDERED: CEFTRIAXONE 1G VIAL IVPB SCH (14:00)
[2023-11-26 14:26] LABS: ADD UA MICROSCOPIC YES; APPEARANCE,URINE CLOUDY (CLEAR); BILIRUBIN,URINE NEGATIVE (NEGATIVE); COLOR,URINE YELLOW (YELLOW); GLUCOSE, URINE (UA) NEGATIVE (NEGATIVE); KETONES,URINE NEGATIVE (NEGATIVE); LEUKOCYTE ESTERASE ,URINE 500 Leu/uL (NEGATIVE); NITRATE,URINE 1+ (NEGATIVE); OCCULT BLOOD,URINE MODERATE (NEGATIVE); PROTEIN,URINE 70 mg/dL (NEGATIVE); UROBILINOGEN,URINE 0.2 mg/dL (0.2-1.0)
[2023-11-26] MEDS ORDERED: RENAL DOSE IV SCH (14:30)
[2023-11-26 14:32] LABS: BACTERIA,URINE RARE /HPF (None Seen); MUCUS,URINE RARE LPF (None Seen); NON-SQUAMOUS EPITHELIAL CELL 2 /HPF (0-2); SQUAMOUS EPITHELIAL CELL,UR FEW /HPF (0-2); WBC CLUMP FEW /HPF (0-1); WBC,URINE >100 /HPF (0-1)
[2023-11-26] MEDS: AZITHROMYCIN 500MG+NS 250ML 250 ML IVPB SCH (14:45)
[2023-11-26 15:10] LABS: ABG BASE EXCESS 5.6 mmol/L (-2.0-3.0); ABG HCO3 31.2 mmol/L (21.0-28.0); ABG OXYGEN SATURATION 94.3 % (95.0-99.0); ABG PCO2 49 mmHg (32-45); ABG PH 7.422 (7.35-7.450); DEVICE COMMENT RR 5LNC; PO2, ARTERIAL BG 70.5 mmHg (83.0-108.0)
[2023-11-26] MEDS: ZOSYN 3.375GM +NS 50ML IV SCH (16:43)
[2023-11-26] MEDS: FUROSEMIDE 20MG VIAL IV STA (16:44)
[2023-11-26] MEDS: DILTIAZEM 180MG SR CAP PO ONE (16:44)
[2023-11-26] MEDS: SOLU-MEDROL 40MG VIAL IVP STA (16:44)
[2023-11-26] MEDS: MONTELUKAST SODIUM 10 MG TAB PO STA (16:44)
[2023-11-26 20:30] LABS: COVID19 (SARS ANTIGEN RAPID) PRESUMPTIVE NEGATIVE (NEGATIVE)
[2023-11-26 20:32] LABS: INFLUENZA TYPE A Negative For Type A (NEGATIVE); INFLUENZA TYPE B Negative For Type B (NEGATIVE)
[2023-11-26] MEDS: METOPROLOL TARTRATE 25 MG TAB PO SCH (20:52)
[2023-11-26] MEDS: APIXABAN 2.5 MG TABLET PO SCH (20:52)
[2023-11-26] MEDS ORDERED: FURO20TA4 PO (22:05)
[2023-11-26] MEDS ORDERED: FLUT1BLS3 IH (22:05)
[2023-11-26] MEDS ORDERED: DILT180C51 PO (22:05)
[2023-11-26] MEDS ORDERED: BENZOCAINE/MENTH/CETYLPYRD CL 1 EACH LOZENGE MM PRN (23:00)
[2023-11-26] MEDS: DOXYCYCLINE 100MG+NS 250ML 250 ML IV SCH (23:52)
[2023-11-27] VITALS (13 sets, daily range): BP systolic 104–149; BP diastolic 56–90; PULSE 75–100; RESP 18–22; O2SAT 92–98
[2023-11-27] MEDS: IPRATROPIUM/ALBUTEROL SULFATE 3 ML SOLUTION IH SCH
[2023-11-27 03:39] LABS: BASOPHILS # (AUTO) 0.01 K/uL (0.00-0.20); BASOPHILS % (AUTO) 0.1 % (0.0-5.0); HEMATOCRIT 36.3 % (36-48); IMMATURE GRANULOCYTE ABSOLUTE 0.03 K/uL (0-1); LYMPHOCYTES # (AUTO) 0.9 K/uL (1.0-4.8); LYMPHOCYTES % (AUTO) 11.6 % (21.0-51.0); MEAN CORPUSCULAR VOLUME 90.8 fL (79-99); MONOCYTES # (AUTO) 0.2 K/uL (0.1-1.0); MONOCYTES % (AUTO) 2.9 % (3.0-13.0); NEUTROPHILS # (AUTO) 6.5 K/uL (1.8-7.7); PLATELET COUNT (AUTO) 226 K/uL (130-400); RED CELL DISTRIBUTION WIDTH 14.4 % (11.0-15.5); WHITE BLOOD COUNT (AUTO) 7.6 K/uL (4.8-10.8)
[2023-11-27 04:09] LABS: ALBUMIN 2.6 g/dL (3.5-5.0); BILIRUBIN,TOTAL 0.4 mg/dL (0.2-1.0); CREATININE 2.4 mg/dL (0.5-1.0); POTASSIUM 4.3 mmol/L (3.5-5.1); TOTAL PROTEIN, SERUM 6.9 g/dL (6.0-8.3)
[2023-11-27 04:36] LABS: B-TYPE NATRIURETIC PEPTIDE 249 pg/mL (0-100)
[2023-11-27] MEDS: FUROSEMIDE 40MG VIAL IV SCH (06:32)
[2023-11-27] MEDS: DILTIAZEM 180MG SR CAP PO SCH (08:18)
[2023-11-27 10:50] LABS: HEMOGLOBIN A1C 5.9 % (4.0-6.0)
[2023-11-27 14:31] LABS: MYCOPLASMA AB IGM POSITIVE (NEGATIVE)
[2023-11-27] MEDS: METOPROLOL TARTRATE 25 MG TAB PO SCH (15:25)
[2023-11-27 19:10] LABS: ABG HCO3 29.2 mmol/L (21.0-28.0); ABG PCO2 46 mmHg (32-45); ABG PH 7.422 (7.35-7.450)
[2023-11-27] MEDS: PHENAZOPYRIDINE HCL 200 MG TABLET PO SCH (20:52)
[2023-11-27] MEDS: ACETAMINOPHEN 325 MG TAB PO PRN (20:53)
[2023-11-27] MEDS: BENZONATATE 100 MG CAPSULE PO PRN (22:54)
[2023-11-28] VITALS (14 sets, daily range): BP systolic 104–151; BP diastolic 57–86; PULSE 81–103; RESP 18–20; O2SAT 91–96
[2023-11-28 03:43] LABS: MEAN CORPUSCULAR HGB CONC 32.6 g/dL (32.0-36.0); MEAN CORPUSCULAR VOLUME 89.1 fL (79-99); RED BLOOD CELL COUNT(AUTO) 3.93 MIL/uL (4.00-5.50); RED CELL DISTRIBUTION WIDTH 14.2 % (11.0-15.5); WHITE BLOOD COUNT (AUTO) 13.1 K/uL (4.8-10.8)
[2023-11-28 04:04] LABS: CREATININE 2.4 mg/dL (0.5-1.0); POTASSIUM 3.5 mmol/L (3.5-5.1)
[2023-11-28] MEDS: KCL 20 MEQ ERTAB PO ONE (09:28)
[2023-11-28] MEDS: MAGNESIUM 2GM PREMIX 50ML 50 ML IV ONE (09:28)
[2023-11-28] MEDS: CEFTRIAXONE 1G VIAL IVPB SCH (11:48)
[2023-11-28] MEDS: MONTELUKAST SODIUM 10 MG TAB PO SCH (14:07)
[2023-11-28] MEDS: FLUOXETINE HCL 20 MG CAPSULE PO SCH (20:27)
[2023-11-28] MEDS: MEMANTINE HCL 5 MG TABLET PO SCH (20:27)
[2023-11-28] MEDS: ALPRAZOLAM 0.25 MG TABLET PO SCH (20:27)
[2023-11-28] MEDS: PREDNISONE 20 MG TABLET PO SCH (20:28)
[2023-11-28] MEDS: METOPROLOL TARTRATE 25 MG TAB PO SCH (20:28)
[2023-11-29] VITALS (12 sets, daily range): BP systolic 118–145; BP diastolic 68–93; PULSE 48–101; RESP 16–28; O2SAT 92–97
[2023-11-29 04:00] LABS: HEMATOCRIT 36.1 % (36-48); MEAN CORPUSCULAR HEMOGLOBIN 29.1 pg (27.0-33.0); MEAN CORPUSCULAR HGB CONC 32.1 g/dL (32.0-36.0); MEAN CORPUSCULAR VOLUME 90.5 fL (79-99); RED BLOOD CELL COUNT(AUTO) 3.99 MIL/uL (4.00-5.50); RED CELL DISTRIBUTION WIDTH 14.5 % (11.0-15.5); WHITE BLOOD COUNT (AUTO) 9.6 K/uL (4.8-10.8)
[2023-11-29 04:19] LABS: CREATININE 2.3 mg/dL (0.5-1.0); POTASSIUM 4.8 mmol/L (3.5-5.1)
[2023-11-29] MEDS: Vitamin B Complex/Vit C/Folic Acid PO SCH (08:09)
[2023-11-29] MEDS: FERROUS SULFATE 325 MG TABLET.DR PO SCH (08:10)
[2023-11-29] MEDS: **HM**(Fluticasone/Umeclidin/Vilanter (Trelegy Ellipta 100-62.5- IH SCH (08:19)
[2023-11-29] MEDS: CEFTRIAXONE 2GM VIAL IVPB SCH (11:43)
[2023-11-29] MEDS ORDERED: RENAL DOSE IV PRN (13:00)
[2023-11-29] MEDS: LEVOFLOXACIN 500 MG/D5W 100 ML 100 ML IV SCH (13:32)
[2023-11-30 03:44] VITALS: BP 124/76; PULSE 90; RESP 16
[2023-11-30 04:22] LABS: HEMATOCRIT 33.8 % (36-48); MEAN CORPUSCULAR HEMOGLOBIN 29.1 pg (27.0-33.0); MEAN CORPUSCULAR HGB CONC 32.2 g/dL (32.0-36.0); MEAN CORPUSCULAR VOLUME 90.1 fL (79-99); RED BLOOD CELL COUNT(AUTO) 3.75 MIL/uL (4.00-5.50); RED CELL DISTRIBUTION WIDTH 14.3 % (11.0-15.5); WHITE BLOOD COUNT (AUTO) 11.1 K/uL (4.8-10.8)
[2023-11-30 05:00] LABS: MAGNESIUM 2.1 mg/dL (1.80-2.40); PHOSPHORUS 3.8 mg/dL (2.5-4.9); POTASSIUM 4.1 mmol/L (3.5-5.1)
[2023-11-30 06:40] VITALS: PULSE 92; RESP 24; O2SAT 88
[2023-11-30 06:43] VITALS: PULSE 92; RESP 24
[2023-11-30 07:00] VITALS: BP 147/83; PULSE 90; RESP 22; O2SAT 93
[2023-11-30] MEDS: MONTELUKAST SODIUM 10 MG TAB PO SCH (08:44)
[2023-11-30 11:24] VITALS: PULSE 91; RESP 20
[2023-11-30 11:30] VITALS: BP 124/100; PULSE 73; RESP 22
[2023-11-30 15:14] LABS: CHLAM.PNEUMONIAE IGM TITER <1:10 (Neg:<1:10)
[2023-11-30] MEDS ORDERED: PRED20TA3 PO (15:43)
[2023-11-30] MEDS ORDERED: METO25TA6 PO (15:45)
[2023-12-01] MEDS ORDERED: LEVOFLOXACIN 250 MG/D5W 50ML 50 ML IVPB SCH (13:00)
== END 2023-11-30 16:25 | disposition home or self-care (01) | DRG 871 ==
LOC: EDH 10:08 → EDHIP 12:38 → 2AH 16:09
PROVIDERS: ADMIT Hospitalist; ATTEND Hospitalist
DX: A41.50 Gram-negative sepsis, unspecified (principal); I50.43 Acute on chronic combined systolic (congestive) and diastolic (congestive) heart failure; J15.7 Pneumonia due to Mycoplasma pneumoniae; J15.69 Pneumonia due to other Gram-negative bacteria; J96.21 Acute and chronic respiratory failure with hypoxia; J96.22 Acute and chronic respiratory failure with hypercapnia; E87.1 Hypo-osmolality and hyponatremia; N17.9 Acute kidney failure, unspecified; I13.0 Hypertensive heart and chronic kidney disease with heart failure and stage 1 through stage 4 chronic kidney disease, or unspecified chronic kidney disease; I48.19 Other persistent atrial fibrillation; J44.0 Chronic obstructive pulmonary disease with (acute) lower respiratory infection; J44.1 Chronic obstructive pulmonary disease with (acute) exacerbation; N18.4 Chronic kidney disease, stage 4 (severe); E44.0 Moderate protein-calorie malnutrition; N39.0 Urinary tract infection, site not specified; I48.92 Unspecified atrial flutter; B96.20 Unspecified Escherichia coli [E. coli] as the cause of diseases classified elsewhere; E87.8 Other disorders of electrolyte and fluid balance, not elsewhere classified; I71.40 Abdominal aortic aneurysm, without rupture, unspecified; I25.10 Atherosclerotic heart disease of native coronary artery without angina pectoris; Z20.822 Contact with and (suspected) exposure to COVID-19; E78.00 Pure hypercholesterolemia, unspecified; F03.90 Unspecified dementia, unspecified severity, without behavioral disturbance, psychotic disturbance, mood disturbance, and anxiety; I45.9 Conduction disorder, unspecified; I49.5 Sick sinus syndrome; I73.9 Peripheral vascular disease, unspecified; Z95.0 Presence of cardiac pacemaker; Z86.73 Personal history of transient ischemic attack (TIA), and cerebral infarction without residual deficits; Z99.81 Dependence on supplemental oxygen; Z95.5 Presence of coronary angioplasty implant and graft; Z79.899 Other long term (current) drug therapy; Z79.01 Long term (current) use of anticoagulants
CPT/HCPCS: 36415; 36600; 71045; 76770; 78580; 80048; 80053; 81001; 82803; 83036; 83735; 83880; 83930; 83935; 84100; 84300; 84484; 85025; 85027; 85378; 85610; 85730; 86632; 86738; 87040; 87077; 87086; 87186; 87426; 87449; 87804; 93005; 93970; 94640; 94664; 96375; 96376; A9540; G0378; J0456; J0696; J1644; J1940; J1956; J2543; J2920; J3475; J3490

== ENCOUNTER 2023-12-16 21:58 | Inpatient (IN) | payer OTHER ==
[~2023-12-16] VITALS: Ht 160 cm; Wt 71.9 kg
[~2023-12-16 21:58] MED LIST changes: -AMOX1TAB15 PO; -CYAN10007 IJ; +DILT180C51 PO; -DOXY100T2 PO; +FLUT1BLS3 IH; +FURO20TA4 PO; -IBUP-2070 PO; -METO-408 PO; +METO25TA6 PO; -ROSU5TAB43 PO
[2023-12-16 23:18] LABS: HEMATOCRIT 33.5 % (36-48); MEAN CORPUSCULAR HGB CONC 32.2 g/dL (32.0-36.0); MEAN CORPUSCULAR VOLUME 90.1 fL (79-99); PLATELET COUNT (AUTO) 208 K/uL (130-400); RED BLOOD CELL COUNT(AUTO) 3.72 MIL/uL (4.00-5.50); RED CELL DISTRIBUTION WIDTH 15.5 % (11.0-15.5); WHITE BLOOD COUNT (AUTO) 14.8 K/uL (4.8-10.8)
[2023-12-16] MEDS: AMIODARONE 150MG VIAL 150 MG in DEXTROSE 5%-WATER 100 ML IV SCH (23:20)
[2023-12-16] MEDS: AMIODARONE 150MG VIAL ONE (23:28)
[2023-12-16] MEDS: LACTATED RINGERS 1000ML 1,000 ML IV ONE (23:28)
[2023-12-16 23:34] LABS: CREATININE 2.6 mg/dL (0.5-1.0); POTASSIUM 5.7 mmol/L (3.5-5.1)
[2023-12-16 23:35] LABS: APPEARANCE,URINE CLEAR (CLEAR); BILIRUBIN,URINE NEGATIVE (NEGATIVE); COLOR,URINE YELLOW (YELLOW); GLUCOSE, URINE (UA) NEGATIVE (NEGATIVE); KETONES,URINE NEGATIVE (NEGATIVE); LEUKOCYTE ESTERASE ,URINE NEGATIVE Leu/uL (NEGATIVE); NITRATE,URINE NEGATIVE (NEGATIVE); OCCULT BLOOD,URINE NEGATIVE (NEGATIVE); PH,URINE 5.5 (5.0-8.0); PROTEIN,URINE 10 mg/dL (NEGATIVE); UROBILINOGEN,URINE 0.2 mg/dL (0.2-1.0)
[2023-12-16 23:36] LABS: ADD UA MICROSCOPIC YES
[2023-12-16 23:37] LABS: BACTERIA,URINE RARE /HPF (None Seen); MUCUS,URINE RARE LPF (None Seen); RBC,URINE 0-1 /HPF (0-1)
[2023-12-16 23:39] LABS: ALBUMIN 2.6 g/dL (3.5-5.0); BILIRUBIN,TOTAL 0.4 mg/dL (0.2-1.0); TOTAL PROTEIN, SERUM 5.8 g/dL (6.0-8.3)
[2023-12-16] MEDS: AMIODARONE 900MG VIAL 360 MG in DEXTROSE 5%-WATER 200 ML IV SCH (23:42)
[2023-12-16 23:48] LABS: BASOPHILS # (AUTO) 0.03 K/uL (0.00-0.20); BASOPHILS % (AUTO) 0.2 % (0.0-5.0); EOSINOPHILS # (AUTO) 0.15 K/uL (0.00-0.70); IMMATURE GRANULOCYTE ABSOLUTE 0.07 K/uL (0-1); LYMPHOCYTES # (AUTO) 0.6 K/uL (1.0-4.8); LYMPHOCYTES % (AUTO) 4.1 % (21.0-51.0); MONOCYTES # (AUTO) 1.2 K/uL (0.1-1.0); MONOCYTES % (AUTO) 8.5 % (3.0-13.0); NEUTROPHILS # (AUTO) 12.4 K/uL (1.8-7.7); NEUTROPHILS % (AUTO) 85.7 % (40.0-77.0)
[2023-12-17] VITALS (57 sets, daily range): BP systolic 92–131; BP diastolic 41–84; PULSE 73–120; RESP 17–26; TEMP 98.8; O2SAT 89–98
[2023-12-17] MEDS: GLYCERIN ADULT SUPP.RECT RC SCH
[2023-12-17] MEDS: DEXTROSE 50%-WATER 50 ML DISP.SYRIN IV ONE (00:08)
[2023-12-17] MEDS: INSULIN HUMULIN R 100 UNIT/ML 3ML SQ ONE (00:10)
[2023-12-17 00:19] LABS: WBC MORPHOLOGY CONSISTENT W/DIFF
[2023-12-17] MEDS: ALBUTEROL 0.083% 2.5 MG/3 ML INH IH ONE (00:38)
[2023-12-17] MEDS: ONDANSETRON 4MG INJ IVP ONE (01:35)
[2023-12-17] MEDS: ONDANSETRON 4MG INJ ONE (01:35)
[2023-12-17] MEDS: NOREPINEPHRIN 4MG/NS 250ML 250 ML IV SCH (02:28)
[2023-12-17] MEDS ORDERED: MORPHINE 4 MG SYG IV PRN (03:00)
[2023-12-17] MEDS: ACETAMINOPHEN 650 MG SUPPOSITORY RC ONE (03:10)
[2023-12-17] MEDS: PHENYLEPHRINE HCL 10 MG in 0.9% NACL 250ML 250 ML IV SCH (03:25)
[2023-12-17] MEDS: SOLU-MEDROL 125MG VIAL IVP ONE (03:32)
[2023-12-17] MEDS: ZOSYN 3.375GM+NS 50ML 50 ML IV SCH (03:32)
[2023-12-17] MEDS: 0.9%NACL 1000ML 1,641 ML IV ONE (03:32)
[2023-12-17] MEDS: ZOSYN 3.375GM+NS 50ML 50 ML ONE (03:53)
[2023-12-17] MEDS: PHENYLEPHRINE HCL 10 MG/ML 1ML VIAL IV ONE (03:53)
[2023-12-17] MEDS: NA ZIRCON CYCLOSIL(LOKELMA 10GM) PO ONE (03:55)
[2023-12-17 04:04] LABS: ABG BASE EXCESS -1.8 mmol/L (-2.0-3.0); ABG HCO3 25.5 mmol/L (21.0-28.0); ABG OXYGEN SATURATION 88.7 % (95.0-99.0); ABG PCO2 53 mmHg (32-45); ABG PH 7.298 (7.35-7.450); PO2, ARTERIAL BG 61.3 mmHg (83.0-108.0); VENT MODE, BG NC (ROOM AIR)
[2023-12-17] MEDS ORDERED: ACET-2079 PO (05:19)
[2023-12-17] MEDS ORDERED: PROP225T3 PO (05:19)
[2023-12-17] MEDS ORDERED: CYCL5TAB PO (05:19)
[2023-12-17] MEDS: AMIODARONE 900MG VIAL 540 MG in DEXTROSE 5%-WATER 300 ML IV SCH (05:33)
[2023-12-17] MEDS: 0.9%NACL 1000ML 1,000 ML IV SCH (05:39)
[2023-12-17] MEDS: IPRATROPIUM/ALBUTEROL SULFATE 3 ML SOLUTION IH SCH (07:14)
[2023-12-17 08:16] LABS: BASOPHILS # (AUTO) 0.01 K/uL (0.00-0.20); BASOPHILS % (AUTO) 0.1 % (0.0-5.0); EOSINOPHILS # (AUTO) 0.01 K/uL (0.00-0.70); EOSINOPHILS % (AUTO) 0.1 % (0.0-8.0); HEMATOCRIT 33.7 % (36-48); IMMATURE GRANULOCYTE ABSOLUTE 0.08 K/uL (0-1); LYMPHOCYTES # (AUTO) 0.3 K/uL (1.0-4.8); LYMPHOCYTES % (AUTO) 1.9 % (21.0-51.0); MEAN CORPUSCULAR HEMOGLOBIN 28.6 pg (27.0-33.0); MEAN CORPUSCULAR HGB CONC 31.8 g/dL (32.0-36.0); MEAN CORPUSCULAR VOLUME 90.1 fL (79-99); MONOCYTES # (AUTO) 0.5 K/uL (0.1-1.0); MONOCYTES % (AUTO) 2.8 % (3.0-13.0); NEUTROPHILS # (AUTO) 15.3 K/uL (1.8-7.7); NEUTROPHILS % (AUTO) 94.6 % (40.0-77.0); PLATELET COUNT (AUTO) 198 K/uL (130-400); RED BLOOD CELL COUNT(AUTO) 3.74 MIL/uL (4.00-5.50); RED CELL DISTRIBUTION WIDTH 15.8 % (11.0-15.5); WHITE BLOOD COUNT (AUTO) 16.1 K/uL (4.8-10.8)
[2023-12-17 08:40] LABS: CREATININE 3.1 mg/dL (0.5-1.0); MAGNESIUM 1.8 mg/dL (1.80-2.40); PHOSPHORUS 5.1 mg/dL (2.5-4.9); POTASSIUM 4.9 mmol/L (3.5-5.1)
[2023-12-17] MEDS ORDERED: HEPARIN 5,000 UNIT VIAL SQ SCH (09:00)
[2023-12-17] MEDS: PANTOPRAZOLE 40 MG/VIAL IVP SCH (09:06)
[2023-12-17] MEDS: APIXABAN 2.5 MG TABLET PO SCH (09:07)
[2023-12-17] MEDS: 0.9%NACL 1000ML 2,000 ML IV ONE (09:23)
[2023-12-17 10:21] LABS: COVID19 (SARS ANTIGEN RAPID) PRESUMPTIVE NEGATIVE (NEGATIVE); INFLUENZA TYPE A Negative For Type A (NEGATIVE); INFLUENZA TYPE B Negative For Type B (NEGATIVE)
[2023-12-17] MEDS: DILTIAZEM 25MG INJ IVP SCH (10:26)
[2023-12-17] MEDS: DILTIAZEM 125MG+100 ML NS 125 ML IV PRN (10:32)
[2023-12-17] MEDS: POLYETHYLENE GLYCOL 3350 17 GM POWD.PACK PO SCH (10:35)
[2023-12-17] MEDS: DOCUSATE SODIUM 100 MG CAP PO SCH (10:35)
[2023-12-17 11:01] LABS: CREATININE,URINE RANDOM 100.2 mg/dL (30-135)
[2023-12-17] MEDS: SOLU-MEDROL 40MG VIAL IVP SCH (11:17)
[2023-12-17] MEDS: LACTULOSE 20 GM/30 ML UDCUP PO SCH (14:59)
[2023-12-17] MEDS: MAGNESIUM 2GM PREMIX 50ML 50 ML IV PRN (15:23)
[2023-12-17] MEDS: FAMOTIDINE 20MG TAB PO SCH (20:13)
[2023-12-17] MEDS: MAGNESIUM CITRATE 296 ML SOLUTION PO SCH (20:20)
[2023-12-18] VITALS (24 sets, daily range): BP systolic 87–152; BP diastolic 40–81; PULSE 75–109; RESP 18–27; O2SAT 95–96
[2023-12-18 03:54] LABS: BASOPHILS # (AUTO) 0.02 K/uL (0.00-0.20); BASOPHILS % (AUTO) 0.1 % (0.0-5.0); HEMATOCRIT 31.1 % (36-48); IMMATURE GRANULOCYTE ABSOLUTE 0.18 K/uL (0-1); LYMPHOCYTES # (AUTO) 0.6 K/uL (1.0-4.8); LYMPHOCYTES % (AUTO) 3.7 % (21.0-51.0); MEAN CORPUSCULAR HEMOGLOBIN 29.3 pg (27.0-33.0); MEAN CORPUSCULAR HGB CONC 30.9 g/dL (32.0-36.0); MEAN CORPUSCULAR VOLUME 94.8 fL (79-99); MONOCYTES # (AUTO) 0.6 K/uL (0.1-1.0); MONOCYTES % (AUTO) 3.8 % (3.0-13.0); NEUTROPHILS # (AUTO) 14.1 K/uL (1.8-7.7); NEUTROPHILS % (AUTO) 91.2 % (40.0-77.0); PLATELET COUNT (AUTO) 151 K/uL (130-400); RED BLOOD CELL COUNT(AUTO) 3.28 MIL/uL (4.00-5.50); RED CELL DISTRIBUTION WIDTH 15.9 % (11.0-15.5); WHITE BLOOD COUNT (AUTO) 15.4 K/uL (4.8-10.8)
[2023-12-18 04:11] LABS: CREATININE 2.3 mg/dL (0.5-1.0); MAGNESIUM 2.9 mg/dL (1.80-2.40); PHOSPHORUS 5.5 mg/dL (2.5-4.9); POTASSIUM 5.4 mmol/L (3.5-5.1)
[2023-12-18] MEDS: HEPARIN 25,000 UNITS/250ML D5W 250 ML IV SCH (05:59)
[2023-12-18] MEDS ORDERED: HEPARIN 5,000 UNIT VIAL IV PRN (06:00)
[2023-12-18 11:51] LABS: INR 1.04 (0.85-1.15); PROTHROMBIN TIME 11.2 SEC (9.6-11.6)
[2023-12-18] MEDS: DILTIAZEM 60MG TAB PO SCH ×2 (12:59→13:08)
[2023-12-18] MEDS: APIXABAN 2.5 MG TABLET PO ONE (13:08)
[2023-12-18] MEDS ORDERED: MORPHINE 2 MG SYG IV PRN (14:00)
[2023-12-18] MEDS: IPRATROPIUM 0.5 MG/2.5 ML INH IH SCH (18:50)
[2023-12-18] MEDS: APIXABAN 2.5 MG TABLET PO SCH (20:00)
[2023-12-19] VITALS (19 sets, daily range): BP systolic 119–149; BP diastolic 55–94; PULSE 72–119; RESP 20–39; O2SAT 93–97
[2023-12-19] MEDS: ACETAMINOPHEN 325 MG TAB PO PRN (00:06)
[2023-12-19 04:34] LABS: BASOPHILS # (AUTO) 0.01 K/uL (0.00-0.20); BASOPHILS % (AUTO) 0.1 % (0.0-5.0); EOSINOPHILS # (AUTO) 0.01 K/uL (0.00-0.70); EOSINOPHILS % (AUTO) 0.1 % (0.0-8.0); HEMATOCRIT 27.9 % (36-48); IMMATURE GRANULOCYTE ABSOLUTE 0.14 K/uL (0-1); LYMPHOCYTES # (AUTO) 0.5 K/uL (1.0-4.8); LYMPHOCYTES % (AUTO) 3.7 % (21.0-51.0); MEAN CORPUSCULAR HEMOGLOBIN 28.5 pg (27.0-33.0); MEAN CORPUSCULAR HGB CONC 30.8 g/dL (32.0-36.0); MEAN CORPUSCULAR VOLUME 92.4 fL (79-99); MONOCYTES # (AUTO) 0.5 K/uL (0.1-1.0); NEUTROPHILS # (AUTO) 12.1 K/uL (1.8-7.7); PLATELET COUNT (AUTO) 160 K/uL (130-400); RED BLOOD CELL COUNT(AUTO) 3.02 MIL/uL (4.00-5.50); WHITE BLOOD COUNT (AUTO) 13.3 K/uL (4.8-10.8)
[2023-12-19 04:41] LABS: CREATININE 2.1 mg/dL (0.5-1.0); POTASSIUM 5.2 mmol/L (3.5-5.1)
[2023-12-19] MEDS: KAYEXALATE 15GM/60ML PO ONE (10:20)
[2023-12-19] MEDS: DILTIAZEM 60MG TAB PO SCH (12:29)
[2023-12-19] MEDS: SIMETHICONE 80 MG TAB.CHEW PO SCH (12:30)
[2023-12-19] MEDS: SOLU-MEDROL 40MG VIAL IVP SCH (16:47)
[2023-12-19] MEDS: AMIODARONE 200 MG TABLET PO SCH (20:49)
[2023-12-20] VITALS (19 sets, daily range): BP systolic 115–162; BP diastolic 54–91; PULSE 61–115; RESP 16–22; O2SAT 90–95
[2023-12-20 03:57] LABS: BASOPHILS # (AUTO) 0.01 K/uL (0.00-0.20); BASOPHILS % (AUTO) 0.1 % (0.0-5.0); HEMATOCRIT 29.2 % (36-48); IMMATURE GRANULOCYTE ABSOLUTE 0.08 K/uL (0-1); LYMPHOCYTES # (AUTO) 0.5 K/uL (1.0-4.8); LYMPHOCYTES % (AUTO) 4.4 % (21.0-51.0); MEAN CORPUSCULAR HGB CONC 30.8 g/dL (32.0-36.0); MEAN CORPUSCULAR VOLUME 94.2 fL (79-99); MONOCYTES # (AUTO) 0.5 K/uL (0.1-1.0); MONOCYTES % (AUTO) 5.2 % (3.0-13.0); NEUTROPHILS # (AUTO) 9.2 K/uL (1.8-7.7); NEUTROPHILS % (AUTO) 89.5 % (40.0-77.0); PLATELET COUNT (AUTO) 144 K/uL (130-400); RED CELL DISTRIBUTION WIDTH 16.1 % (11.0-15.5); WHITE BLOOD COUNT (AUTO) 10.3 K/uL (4.8-10.8)
[2023-12-20 04:12] LABS: MAGNESIUM 2.6 mg/dL (1.80-2.40); POTASSIUM 5.7 mmol/L (3.5-5.1)
[2023-12-20] MEDS: NA ZIRCON CYCLOSIL(LOKELMA 10GM) PO ONE (10:40)
[2023-12-20] MEDS ORDERED: PROPOFOL 10 MG/ML 20ML VIAL IV ONE (12:33)
[2023-12-21] VITALS (15 sets, daily range): BP systolic 117–151; BP diastolic 50–91; PULSE 61–105; RESP 18–22; O2SAT 90–96
[2023-12-21 04:57] LABS: ABG BASE EXCESS -1.9 mmol/L (-2.0-3.0); ABG HCO3 25.5 mmol/L (21.0-28.0); ABG OXYGEN SATURATION 68.9 % (95.0-99.0); ABG PCO2 54 mmHg (32-45); ABG PH 7.295 (7.35-7.450); PO2, ARTERIAL BG < 45.0 mmHg (83.0-108.0)
[2023-12-21 07:44] LABS: ABG BASE EXCESS -1.2 mmol/L (-2.0-3.0); ABG OXYGEN SATURATION 91.8 % (95.0-99.0); ABG PCO2 56 mmHg (32-45); ABG PH 7.288 (7.35-7.450); CARBON MONOXIDE 0.3; HHb 8.2; PO2, ARTERIAL BG 65.8 mmHg (83.0-108.0)
[2023-12-21] MEDS: PREDNISONE 20 MG TABLET PO SCH (12:22)
[2023-12-21 12:28] LABS: HEMATOCRIT 28.5 % (36-48); MEAN CORPUSCULAR HEMOGLOBIN 29.3 pg (27.0-33.0); MEAN CORPUSCULAR HGB CONC 31.6 g/dL (32.0-36.0); MEAN CORPUSCULAR VOLUME 92.8 fL (79-99); RED BLOOD CELL COUNT(AUTO) 3.07 MIL/uL (4.00-5.50); RED CELL DISTRIBUTION WIDTH 16.1 % (11.0-15.5); WHITE BLOOD COUNT (AUTO) 9.1 K/uL (4.8-10.8)
[2023-12-21 13:28] LABS: CREATININE 1.9 mg/dL (0.5-1.0)
[2023-12-21] MEDS: FUROSEMIDE 40MG VIAL IV ONE (18:18)
[2023-12-22] VITALS (16 sets, daily range): BP systolic 106–147; BP diastolic 52–108; PULSE 60–102; RESP 18–21; O2SAT 92–99
[2023-12-22 04:06] LABS: BASOPHILS # (AUTO) 0.01 K/uL (0.00-0.20); BASOPHILS % (AUTO) 0.1 % (0.0-5.0); HEMATOCRIT 30.8 % (36-48); IMMATURE GRANULOCYTE ABSOLUTE 0.09 K/uL (0-1); LYMPHOCYTES # (AUTO) 0.6 K/uL (1.0-4.8); LYMPHOCYTES % (AUTO) 7.1 % (21.0-51.0); MEAN CORPUSCULAR HEMOGLOBIN 29.2 pg (27.0-33.0); MEAN CORPUSCULAR HGB CONC 31.5 g/dL (32.0-36.0); MEAN CORPUSCULAR VOLUME 92.8 fL (79-99); MONOCYTES # (AUTO) 0.8 K/uL (0.1-1.0); MONOCYTES % (AUTO) 8.9 % (3.0-13.0); NEUTROPHILS # (AUTO) 7.2 K/uL (1.8-7.7); NEUTROPHILS % (AUTO) 82.9 % (40.0-77.0); NUCLEATED RED BLOOD CELLS 0.2 % (0.0-0.19); PLATELET COUNT (AUTO) 170 K/uL (130-400); RED BLOOD CELL COUNT(AUTO) 3.32 MIL/uL (4.00-5.50); RED CELL DISTRIBUTION WIDTH 15.5 % (11.0-15.5); WHITE BLOOD COUNT (AUTO) 8.7 K/uL (4.8-10.8)
[2023-12-22 04:42] LABS: CREATININE 1.7 mg/dL (0.5-1.0); MAGNESIUM 2.1 mg/dL (1.80-2.40); POTASSIUM 5.6 mmol/L (3.5-5.1)
[2023-12-22] MEDS: ZOLPIDEM TARTRATE 5 MG TAB PO PRN (05:05)
[2023-12-22] MEDS: NA ZIRCON CYCLOSIL(LOKELMA 10GM) PO ONE (10:07)
[2023-12-22] MEDS: DILTIAZEM 60MG TAB PO SCH (14:13)
[2023-12-22 14:20] LABS: ABG BASE EXCESS 7.7 mmol/L (-2.0-3.0); ABG HCO3 35.2 mmol/L (21.0-28.0); ABG OXYGEN SATURATION 86.5 % (95.0-99.0); ABG PCO2 66 mmHg (32-45); ABG PH 7.348 (7.35-7.450); CARBON MONOXIDE 0.7; DEVICE COMMENT JOHNNY RN RR; HHb 13.4; PO2, ARTERIAL BG 55.5 mmHg (83.0-108.0); VENT MODE, BG 3L NC (ROOM AIR)
[2023-12-23] VITALS (12 sets, daily range): BP systolic 122–145; BP diastolic 57–93; PULSE 60–105; RESP 18–22; O2SAT 93–98
[2023-12-23 03:41] LABS: ABG BASE EXCESS 4.4 mmol/L (-2.0-3.0); ABG HCO3 31.2 mmol/L (21.0-28.0); ABG OXYGEN SATURATION 92.7 % (95.0-99.0); ABG PCO2 55 mmHg (32-45); DEVICE COMMENT RR RN; PO2, ARTERIAL BG 67.8 mmHg (83.0-108.0); VENT MODE, BG 5LNC (ROOM AIR)
[2023-12-23 04:00] LABS: BASOPHILS # (AUTO) 0.02 K/uL (0.00-0.20); BASOPHILS % (AUTO) 0.2 % (0.0-5.0); EOSINOPHILS # (AUTO) 0.04 K/uL (0.00-0.70); EOSINOPHILS % (AUTO) 0.5 % (0.0-8.0); HEMATOCRIT 30.5 % (36-48); IMMATURE GRANULOCYTE ABSOLUTE 0.17 K/uL (0-1); LYMPHOCYTES # (AUTO) 0.6 K/uL (1.0-4.8); LYMPHOCYTES % (AUTO) 7.9 % (21.0-51.0); MEAN CORPUSCULAR HEMOGLOBIN 28.2 pg (27.0-33.0); MEAN CORPUSCULAR HGB CONC 31.1 g/dL (32.0-36.0); MEAN CORPUSCULAR VOLUME 90.5 fL (79-99); MONOCYTES # (AUTO) 0.9 K/uL (0.1-1.0); MONOCYTES % (AUTO) 11.7 % (3.0-13.0); NEUTROPHILS # (AUTO) 6.3 K/uL (1.8-7.7); NEUTROPHILS % (AUTO) 77.6 % (40.0-77.0); NUCLEATED RED BLOOD CELLS 0.2 % (0.0-0.19); PLATELET COUNT (AUTO) 198 K/uL (130-400); RED BLOOD CELL COUNT(AUTO) 3.37 MIL/uL (4.00-5.50); RED CELL DISTRIBUTION WIDTH 15.5 % (11.0-15.5); WHITE BLOOD COUNT (AUTO) 8.1 K/uL (4.8-10.8)
[2023-12-23 04:29] LABS: CREATININE 1.6 mg/dL (0.5-1.0); POTASSIUM 4.2 mmol/L (3.5-5.1)
[2023-12-23] MEDS: MONTELUKAST SODIUM 10 MG TAB PO SCH (09:20)
[2023-12-24] VITALS (14 sets, daily range): BP systolic 133–160; BP diastolic 61–91; PULSE 70–116; RESP 16–22; O2SAT 91–97
[2023-12-24 03:51] LABS: ABG BASE EXCESS 9.6 mmol/L (-2.0-3.0); ABG HCO3 36.8 mmol/L (21.0-28.0); ABG OXYGEN SATURATION 65.4 % (95.0-99.0); ABG PCO2 60 mmHg (32-45); ABG PH 7.408 (7.35-7.450); DEVICE COMMENT RA RN; PO2, ARTERIAL BG < 45.0 mmHg (83.0-108.0); VENT MODE, BG 5LNC (ROOM AIR)
[2023-12-24] MEDS: FUROSEMIDE 20 MG TABLET PO SCH (08:43)
[2023-12-24] MEDS: BUDESONIDE 0.5 MG/2 ML INH IH SCH (12:20)
[2023-12-24] MEDS: DILTIAZEM 60MG TAB PO SCH (17:27)
[2023-12-25] VITALS (16 sets, daily range): BP systolic 122–153; BP diastolic 59–96; PULSE 72–108; RESP 16–22; O2SAT 91–95
[2023-12-25] MEDS: FUROSEMIDE 20MG VIAL IV ONE (09:31)
[2023-12-25] MEDS: DILTIAZEM 120MG SR CAP PO SCH (09:31)
[2023-12-25] MEDS: FUROSEMIDE 20 MG TABLET PO SCH (20:18)
[2023-12-26] VITALS (16 sets, daily range): BP systolic 100–153; BP diastolic 61–94; PULSE 67–98; RESP 16–23; O2SAT 91–96
[2023-12-26 04:26] LABS: BASOPHILS # (AUTO) 0.04 K/uL (0.00-0.20); BASOPHILS % (AUTO) 0.4 % (0.0-5.0); EOSINOPHILS # (AUTO) 0.04 K/uL (0.00-0.70); EOSINOPHILS % (AUTO) 0.4 % (0.0-8.0); HEMATOCRIT 37.1 % (36-48); IMMATURE GRANULOCYTE ABSOLUTE 0.23 K/uL (0-1); LYMPHOCYTES # (AUTO) 1.2 K/uL (1.0-4.8); LYMPHOCYTES % (AUTO) 11.5 % (21.0-51.0); MEAN CORPUSCULAR HEMOGLOBIN 29.1 pg (27.0-33.0); MEAN CORPUSCULAR HGB CONC 31.8 g/dL (32.0-36.0); MEAN CORPUSCULAR VOLUME 91.6 fL (79-99); MONOCYTES # (AUTO) 1.2 K/uL (0.1-1.0); MONOCYTES % (AUTO) 11.6 % (3.0-13.0); NEUTROPHILS # (AUTO) 7.4 K/uL (1.8-7.7); NEUTROPHILS % (AUTO) 73.8 % (40.0-77.0); PLATELET COUNT (AUTO) 269 K/uL (130-400); RED BLOOD CELL COUNT(AUTO) 4.05 MIL/uL (4.00-5.50); RED CELL DISTRIBUTION WIDTH 15.9 % (11.0-15.5)
[2023-12-26 04:50] LABS: CREATININE 1.6 mg/dL (0.5-1.0); PHOSPHORUS 3.2 mg/dL (2.5-4.9); POTASSIUM 3.5 mmol/L (3.5-5.1)
[2023-12-26] MEDS: LABETALOL 20MG SYG IV PRN (08:28)
[2023-12-26] MEDS: ACETAMINOPHEN 325 MG TAB PO PRN (11:03)
[2023-12-26] MEDS: POTASSIUM CHLORIDE 10% ELIXIR 20 MEQ/15 ML UDCUP PO ONE (15:31)
[2023-12-27] VITALS (15 sets, daily range): BP systolic 99–146; BP diastolic 58–91; PULSE 57–103; RESP 18–20; O2SAT 92–95
[2023-12-27 04:01] LABS: HEMATOCRIT 34.8 % (36-48); MEAN CORPUSCULAR HGB CONC 32.5 g/dL (32.0-36.0); MEAN CORPUSCULAR VOLUME 89.5 fL (79-99); NUCLEATED RED BLOOD CELLS 0.2 % (0.0-0.19); RED BLOOD CELL COUNT(AUTO) 3.89 MIL/uL (4.00-5.50); RED CELL DISTRIBUTION WIDTH 16.3 % (11.0-15.5); WHITE BLOOD COUNT (AUTO) 13.1 K/uL (4.8-10.8)
[2023-12-27 04:10] LABS: CREATININE 1.9 mg/dL (0.5-1.0); POTASSIUM 5.2 mmol/L (3.5-5.1)
[2023-12-27 10:33] LABS: ABG BASE EXCESS 13.6 mmol/L (-2.0-3.0); ABG HCO3 39.9 mmol/L (21.0-28.0); ABG OXYGEN SATURATION 92.8 % (95.0-99.0); ABG PCO2 56 mmHg (32-45); ABG PH 7.472 (7.35-7.450); DEVICE COMMENT LRJOHNNY; PO2, ARTERIAL BG 62.6 mmHg (83.0-108.0); VENT MODE, BG NC (ROOM AIR)
[2023-12-27] MEDS: ONDANSETRON 4MG INJ IV PRN (13:05)
[2023-12-27] MEDS ORDERED: PHARMACY COMMUNICATION MISC SCH (18:30)
[2023-12-28] VITALS (14 sets, daily range): BP systolic 94–133; BP diastolic 45–78; PULSE 59–97; RESP 18–21; O2SAT 92–95
[2023-12-28 03:52] LABS: BASOPHILS # (AUTO) 0.03 K/uL (0.00-0.20); BASOPHILS % (AUTO) 0.2 % (0.0-5.0); EOSINOPHILS # (AUTO) 0.21 K/uL (0.00-0.70); EOSINOPHILS % (AUTO) 1.7 % (0.0-8.0); HEMATOCRIT 34.3 % (36-48); LYMPHOCYTES # (AUTO) 1.8 K/uL (1.0-4.8); LYMPHOCYTES % (AUTO) 14.2 % (21.0-51.0); MEAN CORPUSCULAR HGB CONC 31.5 g/dL (32.0-36.0); MONOCYTES # (AUTO) 1.2 K/uL (0.1-1.0); MONOCYTES % (AUTO) 9.3 % (3.0-13.0); NUCLEATED RED BLOOD CELLS 0.2 % (0.0-0.19); PLATELET COUNT (AUTO) 275 K/uL (130-400); RED BLOOD CELL COUNT(AUTO) 3.73 MIL/uL (4.00-5.50); RED CELL DISTRIBUTION WIDTH 16.6 % (11.0-15.5); WHITE BLOOD COUNT (AUTO) 12.3 K/uL (4.8-10.8)
[2023-12-28 04:06] LABS: CREATININE 2.6 mg/dL (0.5-1.0); PHOSPHORUS 4.4 mg/dL (2.5-4.9); POTASSIUM 3.8 mmol/L (3.5-5.1)
[2023-12-29] VITALS (9 sets, daily range): BP systolic 112–118; BP diastolic 50–80; PULSE 68–102; RESP 16–20; O2SAT 93
[2023-12-29 04:06] LABS: CREATININE 1.9 mg/dL (0.5-1.0); MAGNESIUM 1.8 mg/dL (1.80-2.40); PHOSPHORUS 3.2 mg/dL (2.5-4.9); POTASSIUM 3.4 mmol/L (3.5-5.1)
[2023-12-29 04:13] LABS: BASOPHILS # (AUTO) 0.02 K/uL (0.00-0.20); BASOPHILS % (AUTO) 0.2 % (0.0-5.0); EOSINOPHILS # (AUTO) 0.21 K/uL (0.00-0.70); EOSINOPHILS % (AUTO) 1.7 % (0.0-8.0); HEMATOCRIT 32.2 % (36-48); IMMATURE GRANULOCYTE ABSOLUTE 0.15 K/uL (0-1); LYMPHOCYTES # (AUTO) 1.4 K/uL (1.0-4.8); LYMPHOCYTES % (AUTO) 11.1 % (21.0-51.0); MEAN CORPUSCULAR HEMOGLOBIN 29.2 pg (27.0-33.0); MEAN CORPUSCULAR HGB CONC 31.4 g/dL (32.0-36.0); MEAN CORPUSCULAR VOLUME 93.1 fL (79-99); MONOCYTES # (AUTO) 1.1 K/uL (0.1-1.0); MONOCYTES % (AUTO) 9.3 % (3.0-13.0); NEUTROPHILS # (AUTO) 9.4 K/uL (1.8-7.7); NEUTROPHILS % (AUTO) 76.5 % (40.0-77.0); PLATELET COUNT (AUTO) 241 K/uL (130-400); RED BLOOD CELL COUNT(AUTO) 3.46 MIL/uL (4.00-5.50); RED CELL DISTRIBUTION WIDTH 16.6 % (11.0-15.5); WHITE BLOOD COUNT (AUTO) 12.3 K/uL (4.8-10.8)
[2023-12-29] MEDS ORDERED: DILT120C89 PO (11:21)
== END 2023-12-29 13:45 | disposition home or self-care (01) | DRG 189 ==
LOC: EDH 21:58 → EDHIP 12-17 02:47 → 2BH 12-17 07:19 → 2AH 12-19 21:19
PROVIDERS: ADMIT Internal Medicine; ATTEND Internal Medicine
PROC: 5A09357 Assistance with Respiratory Ventilation, Less than 24 Consecutive Hours, Continuous Positive Airway Pressure (ICD-10-PCS; principal; 2023-12-17)
PROC: 05HB33Z Insertion of Infusion Device into Right Basilic Vein, Percutaneous Approach (ICD-10-PCS; 2023-12-18)
PROC: B54MZZA Ultrasonography of Right Upper Extremity Veins, Guidance (ICD-10-PCS; 2023-12-18)
PROC: 5A09357 Assistance with Respiratory Ventilation, Less than 24 Consecutive Hours, Continuous Positive Airway Pressure (ICD-10-PCS; 2023-12-29)
DX: J96.21 Acute and chronic respiratory failure with hypoxia (principal); I50.43 Acute on chronic combined systolic (congestive) and diastolic (congestive) heart failure; I13.0 Hypertensive heart and chronic kidney disease with heart failure and stage 1 through stage 4 chronic kidney disease, or unspecified chronic kidney disease; E87.29 Other acidosis; E44.0 Moderate protein-calorie malnutrition; E87.1 Hypo-osmolality and hyponatremia; I48.21 Permanent atrial fibrillation; J44.1 Chronic obstructive pulmonary disease with (acute) exacerbation; N17.9 Acute kidney failure, unspecified; N18.4 Chronic kidney disease, stage 4 (severe); N39.0 Urinary tract infection, site not specified; I42.0 Dilated cardiomyopathy; J96.22 Acute and chronic respiratory failure with hypercapnia; E55.9 Vitamin D deficiency, unspecified; F32.A Depression, unspecified; K82.8 Other specified diseases of gallbladder; F17.210 Nicotine dependence, cigarettes, uncomplicated; D64.9 Anemia, unspecified; E11.22 Type 2 diabetes mellitus with diabetic chronic kidney disease; E11.51 Type 2 diabetes mellitus with diabetic peripheral angiopathy without gangrene; E78.00 Pure hypercholesterolemia, unspecified; E86.1 Hypovolemia; E87.5 Hyperkalemia; G47.30 Sleep apnea, unspecified; H35.30 Unspecified macular degeneration; H54.8 Legal blindness, as defined in USA; I25.10 Atherosclerotic heart disease of native coronary artery without angina pectoris; J43.9 Emphysema, unspecified; J84.10 Pulmonary fibrosis, unspecified; K59.09 Other constipation; T38.0X5A Adverse effect of glucocorticoids and synthetic analogues, initial encounter; I95.9 Hypotension, unspecified; Y92.89 Other specified places as the place of occurrence of the external cause; Z79.52 Long term (current) use of systemic steroids; Z86.73 Personal history of transient ischemic attack (TIA), and cerebral infarction without residual deficits; Z95.0 Presence of cardiac pacemaker; Z87.440 Personal history of urinary (tract) infections; Z82.49 Family history of ischemic heart disease and other diseases of the circulatory system; Z82.3 Family history of stroke; Z79.01 Long term (current) use of anticoagulants; Z99.81 Dependence on supplemental oxygen; Z86.79 Personal history of other diseases of the circulatory system; Z79.899 Other long term (current) drug therapy; Z68.28 Body mass index [BMI] 28.0-28.9, adult
CPT/HCPCS: 36415; 36556; 36600; 71045; 71250; 74176; 80048; 80053; 81001; 82435; 82570; 82803; 82947; 82948; 83540; 83550; 83605; 83735; 83880; 84100; 84132; 84145; 84295; 84300; 84443; 84484; 85018; 85025; 85027; 85610; 85730; 87040; 87086; 87426; 87804; 92960; 93005; 94640; 94660; 94664; G0378; J0282; J1644; J1815; J1940; J2371; J2405; J2470; J2543; J2704; J2919; J3475; J3490; J7030; J7050; J7060; J7070; J7120; C1750